=== PATIENT | female | born 1990 | race African-American/Black ===

== ENCOUNTER 2018-03-01 19:08 | Emergency (ER) | payer MEDICAID, SELFPAY ==
[2018-03-01 19:10] VITALS: BP 130/75; PULSE 96; RESP 16; TEMP 36.7; O2SAT 98; BMI 26.8
--- NOTE | 2018-03-01 20:18 | ED.DCSUM_ITS ---
- ER Visit Summary Date of Service: 03/01/18 Chief Complaint: Dental pain History of Present Illness: The patient is a [address] Carnes. She does not have a dentist. She reports that she has had pain in the site of her prior extraction of all of her third molars. This began 2 days ago. Is an aching pains 10 at 10 with eating and 8 out of 10 at rest. She taken ibuprofen without relief. Physical Examination: Vitals: Stable. Afebrile. Mouth: No trismus. No edema of the floor of the mouth. Mild tenderness palpation to the location where her third molars would be otherwise. There is no swelling. There is no evidence of abscess. There is no facial swelling. General: A&O x 3. NAD. Cardiovascular exam: Regular rate and rhythm, no murmur, rub or gallop. Respiratory exam: Clear to auscultation bilaterally. No wheezes or stridor. Abdominal exam: Soft, nontender, nondistended, normal bowel sounds. No peritoneal signs. Extremity: No clubbing, cyanosis, or edema. Emergency Department Course and Treatment: Discussed the patient that I do not think opiate-based medications are in her best interest. I also do not think that this is infectious in etiology. She is treated with naproxen and Tylenol. Treatment Plan: Patient is instructed to follow-up with a dentist as soon as possible. She is given a sheet with a local dentists in the area. Disposition: To home in improved and stable condition. Impression: 1. Dental pain. This note was generated with [employer] dictation software. It may contain incorrect words, spelling, and punctuation that were not noted in review of the chart prior to signing ED Disposition - Plan for ED Patient: Disposition: Home or Assisted Living Chief Complaint: Dental Instructions: ED Tooth Pain Prescriptions: Naproxen [Naprosyn] 500 mg PO BID #20 tablet Referrals: Dentist,Your [STAFF PHYSICIAN] - As soon as possible
[2018-03-01] MEDS: Acetaminophen 500 MG Tablet 1000 MG PO (20:55)
[2018-03-01] MEDS: Naproxen 250 MG Tablet 500 MG PO (20:55)
[2018-03-01 20:58] VITALS: PULSE 85; RESP 16; O2SAT 97
== END 2018-03-01 20:59 | disposition home or self-care (01) ==
LOC: ED 20:24
PROVIDERS: Emergency Provider Emergency Medicine; Family Provider Family Medicine; PCP Family Medicine
DX: K08.89 Other specified disorders of teeth and supporting structures (principal)
CPT/HCPCS: 99283

== ENCOUNTER 2019-10-25 22:10 | Emergency (ER) | payer MEDICAID, SELFPAY ==
[2019-10-25 22:11] VITALS: BP 116/73; PULSE 79; RESP 17; TEMP 36.3; O2SAT 100; BMI 29.9
--- NOTE | 2019-10-25 22:35 | ED.VIS.GEN ---
History of Present Illness Chief Complaint: Abd Pain Narrative: Patient is a 29-year-old female who presents with 1 week of lower abdominal/pelvic pain. She describes this as sharp in nature all the way across the lower abdomen although it is worse on the left. She reports urinary urgency but no dysuria or hematuria. No vaginal bleeding or discharge. She does have a Nexplanon implant. No fevers nausea vomiting diarrhea. No history of abdominal surgeries. Past Medical History - Allergies and Home Meds Allergies/Adverse Reactions: Allergies No Known Allergies Allergy (Verified 10/25/19 22:10) Primary Care Physician: Ray Carnes MD [Primary Care Provider] - Past Medical History: None Smoking Status: Never smoker Review of Systems All systems negative except as indicated General: Denies: Fever Cardiovascular: Denies: Chest pain Respiratory: Denies: Dyspnea Gastrointestinal: Reports: Abdominal pain. Denies: Nausea, Vomiting, Diarrhea Genitourinary: Reports: - - Urinary urgency. Denies: Dysuria Skin: Denies: Rash Neurological: Denies: Headache Physical Exam Vital Signs/Narrative: Vital Signs Temp Pulse Resp BP Pulse Ox 10/25/19 22:11 97.4 F L 79 17 116/73 100 Inital Vital Signs reviewed: Yes General: Well nourished, Well developed Head: Normocephalic Eyes: EOMI ENT: Moist mucous membranes Neck: Supple Cardiovascular: Regular rate, Regular rhythm Respiratory: No distress, CTA bilaterally Abdomen: Soft, - - Mild suprapubic tenderness. Negative for: Guarding, Rebound tenderness Extremities: Nontender Skin: Normal color Neurological: Alert Psychological: Normal affect Diagnostic/Tx/Re-eval Laboratory Results 10/25/19 10/25/19 23:35 23:35 Urine Color Yellow Urine Clarity Sl. Cloudy Urine pH 5.0 Ur Specific [place] 1.020 Urine Protein Negative Urine Glucose (UA) Normal Urine Ketones Negative Urine Occult Blood Negative Urine Nitrite Negative Urine Bilirubin Negative Urine Urobilinogen Normal Ur Leukocyte Esterase Negative Urine RBC 0 SEEN Urine WBC 0-5 SEEN Ur Squamous Epith Cells 25-50 SEEN Urine Bacteria 0 SEEN Urine Mucus 0 SEEN Urine Test Negative - Medical Decision Making Urinalysis contaminated but otherwise normal. No evidence of cystitis. is negative. Patient has a benign exam. She does not appear to have acute serious or surgical pathology. She does not appear to have an infectious pathology. We discussed other possibilities including ovarian cyst. She does not have an indication for emergent ultrasound but should symptoms continue I discussed she may need further outpatient evaluation. She was advised on supportive care and to follow-up as an outpatient. She was discharged. ED Disposition - Plan for ED Patient: Disposition: Home or Assisted Living Diagnosis: Abdominal pain Instructions: ABDOMINAL PAIN, Unknown Cause, (Female) Referrals: Ray Carnes MD [Primary Care Provider] -
--- NOTE | 2019-10-25 22:55 | ED.RN ---
PT UNABLE TO PROVIDE SAMPLE AT THIS TIME. INSTRUCTIONS GIVEN.
[2019-10-25 23:40] LABS: Bacteria 0 SEEN /hpf (None Seen); Mucous, Urine 0 SEEN /hpf (<or=2+); Red Blood Cells-Urine 0 SEEN /hpf (0-5)
[2019-10-25 23:47] LABS: Internal QC Validated? YES +Cl - CLEAR BKGD; Pregnancy, Urine Negative Negative
[2019-10-25 23:48] LABS: Color, Urine Yellow (Yellow); Glucose, Dipstick Normal (Normal); Ketone-Dipstick Negative (Negative); Leukocyte Esterase-Dipstick Negative /ul (Negative); Nitrite-Dipstick Negative (Negative); Occult Blood-Urine Negative /ul (Negative); Protein-Dipstick Negative (Negative); Urine Bilirubin Dipstick Negative (Negative); Urine Clarity Sl. Cloudy (Clear); Urine Urobilinogen Normal (Normal)
[2019-10-25 23:55] LABS: Squamous Epithelial Cells - UA 25-50 SEEN /hpf (5-10); White Blood Cells 0-5 SEEN /hpf (0-5)
== END 2019-10-26 00:13 | disposition home or self-care (01) ==
PROVIDERS: Emergency Provider Emergency Medicine; Family Provider Family Medicine; PCP Family Medicine
DX: R10.31 Right lower quadrant pain (principal); R10.32 Left lower quadrant pain
CPT/HCPCS: 81001; 81025; 99282

== ENCOUNTER → 2020-08-15 17:16 | Outpatient (CLI) | payer MEDICAID, SELFPAY | PROVIDERS: PCP Family Medicine; Referring Provider Nurse Practitioner Acute Care; Visit Provider Nurse Practitioner Acute Care | DX: Z20.828 Contact with and (suspected) exposure to other viral communicable diseases (principal) | CPT/HCPCS: 87635; C9803; U0003 ==

== ENCOUNTER 2020-10-12 18:43 | Emergency (ER) | payer MEDICAID, SELFPAY ==
[2020-10-12 18:44] VITALS: BP 130/80; PULSE 89; RESP 16; TEMP 36.6; O2SAT 100; BMI 27.3
--- NOTE | 2020-10-12 18:58 | ED.VIS.GEN ---
History of Present Illness Chief Complaint: General Illness Informant: Patient Onset: Yesterday Current Severity: Mild Maximum Severity: Mild Narrative: Patient presents with generalized fatigue and states that she has been to sleep all day. She denies cough or congestion. She denies nausea, vomiting, or diarrhea. No urinary symptoms. She states she did check her temperature 4 times in a relatively short time period. Temperatures measured ranged from 96-1 01. She does not believe her thermometer is accurate does not know if she truly had a fever. Patient states her mother is concerned that she may have Covid and thought she should be tested. Past Medical History - Allergies and Home Meds Allergies/Adverse Reactions: Allergies No Known Allergies Allergy (Verified 10/12/20 18:43) Primary Care Physician: Ray Carnes MD [Primary Care Provider] - Past Medical History: None Lives: With Family Smoking Status: Unknown if ever smoked Review of Systems General: Denies: Chills, Fever Eyes: Denies: Visual changes - bilaterally ENT: Denies: Bilateral ear pain Cardiovascular: Denies: Chest pain Respiratory: Denies: Dyspnea, Cough Gastrointestinal: Denies: Abdominal pain, Nausea, Vomiting Skin: Denies: Rash Neurological: Denies: Weakness Hematologic: Denies: Easy bruising, Easy bleeding Allergy: Denies: Uticaria Physical Exam Vital Signs/Narrative: Vital Signs Temp Pulse Resp BP Pulse Ox 10/12/20 18:44 98 F 89 16 130/80 H 100 Inital Vital Signs reviewed: Yes General: Well nourished, Well developed Head: Normocephalic ENT: Moist mucous membranes Neck: Supple Cardiovascular: Regular rate, Regular rhythm Respiratory: No distress, CTA bilaterally Abdomen: Soft, Nontender Skin: Normal color Neurological: Alert, Oriented x3, Normal Strength, Normal Sensation Psychological: Normal affect Diagnostic/Tx/Re-eval - Medical Decision Making Patient will have a rapid Covid test sent. With no other complaints currently other work-up will not be performed. Patient is in agreement with this plan. She was advised that if her test is negative but she continues to feel unwell throughout the weekend she should be retested on Wednesday as she may be too early in her course to truly test positive. She voices understanding and agreement. ED Disposition - Plan for ED Patient: Disposition: Home or Assisted Living Diagnosis: Fatigue Instructions: Coronavirus Disease 2019 (COVID-19): Overview, Coronavirus Disease 2019 (COVID-19): Caring for Yourself or Others Referrals: Ray Carnes MD [Primary Care Provider] - 3-5 Days if not improving
[2020-10-12 19:14] VITALS: PULSE 84; RESP 15; O2SAT 100
== END 2020-10-12 19:15 | disposition home or self-care (01) ==
LOC: ED 19:02
PROVIDERS: Emergency Provider Emergency Medicine; PCP Family Medicine
DX: R53.83 Other fatigue (principal)
CPT/HCPCS: 87426; 99282

== ENCOUNTER 2020-11-27 18:33 | Emergency (ER) | payer MEDICAID, SELFPAY ==
[2020-11-27 18:34] VITALS: BP 123/74; PULSE 86; PULSE 89; RESP 18; TEMP 35.9; O2SAT 100; BMI 26.9
[2020-11-27] MEDS: 0.9% Normal Saline 1,000 ML 1000 ML IV (19:00)
[2020-11-27] MEDS: Ondansetron 4 MG/2 ML Vial IV (19:01)
[2020-11-27 19:21] LABS: Absolute Lymphocyte Count 3.14 X10^3/uL (0.83-4.51); Absolute Neutrophil Count 5.5 X10^3/uL (2.0-7.7); Basophil# 0.02 X10^3/uL; Basophil% 0.2 % (0-1); Eosinophil# 0.21 X10^3/uL; Eosinophils% 2.3 % (0-5); Hematocrit 42.2 % (37-47); Hemoglobin 13.7 g/dL (12.0-15.0); Lymphocyte # 3.14 X10^3/ul (4.0); Lymphocyte % 33.8 % (19-41); Mean Corp Hgb Conc 32.5 g/dL (32-36); Mean Corpuscular Hgb 29.1 pg (27.0-32.0); Mean Corpuscular Volume 89.8 fL (81-99); Mean Platelet Vol. 10.6 fl (6.2-12.0); Monocyte# 0.38 X10^3/uL; Monocyte% 4.1 % (0-10); NRBC Flagged by Analyzer 0 % (0-5); Neutrophil # 5.53 X10^3/uL (2.7-7.7); Neutrophil % 59.4 % (47-70); Platelet Count 322 K/mm3 (150-450); RBC Distribution Width CV 12.4 % (11.6-14.6); RBC Distribution Width SD 40.6 fl (35.1-43.9); White Blood Count 9.3 K/mm3 (4.4-11.0)
[2020-11-27 19:34] LABS: International Normalized Ratio 0.9; Prothrombin Time (Protime)PT. 11.9 SECONDS (11.7-14.9)
[2020-11-27 19:41] LABS: Partial Thromboplast Time 21.8 Seconds (24.1-36.2)
[2020-11-27 19:48] LABS: ALB/GLOB Ratio 0.7 RATIO (0.9-2.4); AST(SGOT) 13 U/L (15-37); Alanine Aminotransfer ALT/SGPT 26 U/L (13-56); Albumin, Serum 3.3 g/dL (3.2-5.0); Alkaline Phosphatase 73 U/L (45-117); Anion Gap 6 (5-15); BUN 11 mg/dL (7-18); BUN/Creat Ratio 17.2 RATIO (10-20); Calcium,Total 8.8 mg/dL (8.5-10.1); Chloride 107 mmol/L (98-107); Creatinine, Serum 0.64 mg/dL (0.55-1.02); EST Glomerular Filtration Rate 114 mL/min (>60); Est Glom Filt Rate - Afr Amer 138 mL/min (>60); Estimated Creatinine Clearance 100.73 ml/min; Globulin 4.5 g/dL (2.2-4.2); Glucose 96 mg/dL (74-106); Potassium 3.1 mmol/L (3.5-5.1); Protein, Total 7.8 g/dL (6.4-8.2); Sodium Level 141 mmol/L (136-145)
[2020-11-27 19:51] LABS: Internal QC Validated? YES +Cl - CLEAR BKGD; Pregnancy, Serum, hCG Quali. NEGATIVE Negative
--- NOTE | 2020-11-27 20:02 | ED.DCSUM_ITS ---
- ER Visit Summary Date of Service: 11/27/20 Chief Complaint: Vomiting and diarrhea History of Present Illness: The patient is a [address] Mccormick. She reports that she began feeling ill approximately 2 and half hours ago. She has been nauseated and vomited 4 times. No blood in her emesis. She had 3 episodes of diarrhea. She reports that there was blood mixed with the stool on the last episode. States that she had an aching lower abdominal pain that preceded this. It was 6 out of 10 at worst. She is pain-free now. It was worsened by nothing. It was relieved by having diarrhea. Patient denies any dysuria or frequency. She is on her menstrual period now. Patient denies sick contacts. Has not been camping out of the country. No possible bad food exposure. Does not drink well water. No recent antibiotic use. Physical Examination: Vitals: Stable. Afebrile. General: Well-nourished and well-developed. Head: Normocephalic atraumatic. Neck: Supple, no lymphadenopathy. No JVD. Nontender. Cardiovascular: Regular rate and rhythm. No murmurs. Respiratory: No respiratory distress. Clear to auscultation bilaterally. Abdominal: Soft, nontender, nondistended, normal bowel sounds. No guarding, rebound, or peritoneal signs. Back: Nontender. Extremities: Nontender, no edema. Skin: Normal color, no rash. Neurologic: Alert and oriented ?3. Cranial nerves II through XII are intact. Normal strength and sensation. Psych: Normal affect. Test Results: CBC is normal. Hemoglobin is 13.7. Chem-7 shows potassium of 3.1. LFTs show globulin 4.5 and AST of 13. Coags are normal. test is negative. Emergency Department Course and Treatment: Patient had an IV placed. She was given a liter normal saline. She was given Zofran IV. She is had no further vomiting while here. She did have an episode of diarrhea and this was sent to the lab. Treatment Plan: At this time I do not have an explanation for the blood in the patient's last bowel movement. However, she has no family history of Crohn's or ulcerative colitis. I do not think imaging is indicated. She is stable. She will be discharged with instructions to push fluids. She given Zofran for n ausea. Follow-up with her primary care physician in 2 days for another exam. Return to the emergency department for any worsening symptoms. Disposition: To home in improved and stable condition. Impression: 1. Vomiting/diarrhea. This note was generated with [employer] dictation software. It may contain incorrect words, spelling, and punctuation that were not noted in review of the chart prior to signing ED Disposition - Plan for ED Patient: Instructions: ED Vomiting and Diarrhea ... Prescriptions: Ondansetron [Zofran Odt] 4 mg PO Q8H PRN PRN #10 tab PRN Reason: Nausea Prescription Printed Referrals: Ray Carnes MD [Primary Care Provider] - 2 Days
[2020-11-27 20:19] VITALS: BP 110/72; PULSE 70; RESP 16; O2SAT 100
== END 2020-11-27 20:20 | disposition home or self-care (01) ==
LOC: ED 19:04
PROVIDERS: Emergency Provider Emergency Medicine; PCP Family Medicine
DX: R11.2 Nausea with vomiting, unspecified (principal); R19.7 Diarrhea, unspecified
CPT/HCPCS: 80053; 84703; 85025; 85610; 85730; 87506; 96361; 96374; 99283; J7030; A4216; J2405

== ENCOUNTER 2021-01-30 11:20 | Outpatient (RCR) | payer MEDICAID, SELFPAY | END 2021-03-25 23:59 | LOC: IMMUN 11:20 | PROVIDERS: PCP Family Medicine; Visit Provider Family Medicine | DX: Z23 Encounter for immunization (principal) | CPT/HCPCS: 0001A; 0002A; 91300 ==

== ENCOUNTER 2021-11-14 14:41 | Emergency (ER) | payer MEDICAID, SELFPAY ==
[2021-11-14 14:41] VITALS: BP 117/84; PULSE 108; RESP 16; TEMP 36.4; O2SAT 100; BMI 25.4
--- NOTE | 2021-11-14 15:16 | ED.VIS.GI ---
HPI HPI - GI History of Present Illness Chief Complaint: Abd Pain Associated Symptoms LMP: 09/26/2021 Narrative Narrative: 31-year-old female who had twins with her first . She states she is unsure how far along she has been her last menstrual period was September 26, 2021. Patient has follow-up with somebody from [facility] but she does not note doctors name. She is supposed to be seen on the seventh of next month. She developed some sharp pain in the lower abdomen in the midline into the left of the midline earlier this morning. She does state she has had some nausea. She denies urinary or vaginal complaints. She has no constipation or diarrhea. Patient denies any trauma. She has not had confirmed intrauterine . PFSH PFSH Home Medications ondansetron 4 mg PO Q8H PRN PRN #10 tab 11/27/20 [Rx Last Taken Unknown] potassium chloride 40 meq PO DAILY 2 Days #30 ml 11/14/21 [Rx Last Taken Unknown] Allergy/AdvReac Type Severity Reaction Status Date / Time No Known Allergies Allergy Verified 11/14/21 14:43 Social History Smoking Status: Never smoker ROS ROS ED Constitutional Constitutional ED: Denies chills or fever(s) ENT ENT ED: Denies rhinorrhea or sore throat Cardiovascular Cardiovascular: Denies chest pain or palpitations Respiratory/Chest Respiratory/Chest: Denies cough, dyspnea or sputum Gastrointestinal Gastrointestinal: Reports abdominal pain and nausea; Denies constipation, diarrhea or vomiting Genitourinary Genitourinary ED: Reports LMP (females 10-50) Details: Comment: (09/26/2021); Denies dysuria, hematuria or urinary frequency Musculoskeletal Musculoskeletal: Denies arthralgias or myalgias Integumentary Denies Abrasions or rash Neurologic Neurologic: Denies headache(s), paresthesias or weakness EXAM Physical Exam Const Vital Signs: 11/14/21 14:41 11/14/21 17:59 Temperature 97.5 F L Temperature Source Temporal Pulse Rate 108 H Respiratory Rate 16 12 Blood Pressure 117/84 H Blood Pressure Mean 95 Pulse Ox 100 Oxygen Delivery Method Room Air Positive well nourished General Appearance ED: NAD; Negative for pallor HEENT Reports moist mucous membranes normocephalic and atraumatic Eyes PERRL and EOMs intact bilaterally General Eye ED: Negative for pale conjunctiva or scleral icterus Neck no lymphadenopathy and supple Resp normal respiratory effort and clear to auscultation bilaterally Cardio regular rate and regular rhythm GI non-distended GI Narrative: Suprapubic tenderness and left pelvic tenderness. Abdomen nonperitoneal. Palpation: soft and tender Back/Spine no CVA tenderness Neuro CN's II-XII intact bilaterally, moves all extremities and no sensory deficits noted Sensorium / Orientation: alert, oriented to person, oriented to place and oriented to time Motor Exam: strength 5/5 throughout Psych mental status grossly normal and thought process normal Skin General Skin Exam: Negative for jaundice or pallor MDM MDM MDM Narrative Medical decision making narrative: Patient presenting for evaluation of lower abdominal pain which began this morning. Other than nausea she has no other complaints. Her pain is currently mild. She does not want anything for pain or nausea currently. I did review the medical record and she is B+ blood type. Will obtain urine and blood work as well as transvaginal ultrasound. CBC and BMP are normal. With exception of a low potassium at 2.8. LFTs are normal. Urinalysis is negative for infection. hCG is 101,531. Transvaginal ultrasound shows single live intrauterine at 7 weeks 3 days. heart rate is 125. I will order her prescription for potassium replacement. Impression: 1. Abdominal pain for service of 2. Hypokalemia Lab Data Attestation: I reviewed the patient's lab results. Labs: Laboratory Results - last 24 hr 11/14/21 11/14/21 11/14/21 15:25 15:30 16:28 WBC 10.6 RBC 4.55 Hgb 13.4 Hct 39.4 MCV 86.6 MCH 29.5 MCHC 34.0 RDW Std Deviation 38.1 RDW Coeff of Jina 11.9 Plt Count 291 MPV 10.7 Immature Gran % (Auto) 0.300 Neut % (Auto) 66.0 Lymph % (Auto) 25.5 [place] % (Auto) 7.4 Eos % (Auto) 0.5 Baso % (Auto) 0.3 Absolute Neuts (auto) 7.0 Absolute Lymphs (auto) 2.70 Nucleated RBC % 0 Sodium Potassium Chloride Carbon Dioxide Anion Gap BUN Creatinine Estim Creat Clear Calc Est GFR (MDRD) Af Amer Est GFR (MDRD) Non-Af BUN/Creatinine Ratio Glucose Calcium Total Bilirubin AST ALT Alkaline Phosphatase Total Protein Albumin Globulin Albumin/Globulin Ratio HCG, Quant 214580 H Urine Color Yellow Urine Clarity Clear Urine pH 7.0 Ur Specific [place] 1.010 Urine Protein Negative Urine Glucose (UA) Normal Urine Ketones 5 H Urine Occult Blood 10 H Urine Nitrite Negative Urine Bilirubin Negative Urine Urobilinogen Normal Ur Leukocyte Esterase 25 H Urine RBC 0 SEEN Urine WBC 0-5 SEEN Ur Squamous Epith Cells 0-5 SEEN Urine Bacteria 0 SEEN Urine Mucus 0 SEEN Urine Trichomonas 0-5 SEEN 11/14/21 16:28 WBC RBC Hgb Hct MCV MCH MCHC RDW Std Deviation RDW Coeff of Jina Plt Count MPV Immature Gran % (Auto) Neut % (Auto) Lymph % (Auto) [place] % (Auto) Eos % (Auto) Baso % (Auto) Absolute Neuts (auto) Absolute Lymphs (auto) Nucleated RBC % Sodium 135 L Potassium 2.8 L Chloride 102 Carbon Dioxide 24.0 Anion Gap 9 BUN 8 Creatinine 0.65 Estim Creat Clear Calc 93.76 Est GFR (MDRD) Af Amer 135 Est GFR (MDRD) Non-Af 112 BUN/Creatinine Ratio 12.3 Glucose 80 Calcium 9.4 Total Bilirubin 0.50 AST 12 L ALT 19 Alkaline Phosphatase 66 Total Protein 8.7 H Albumin 4.1 Globulin 4.6 H Albumin/Globulin Ratio 0.9 HCG, Quant Urine Color Urine Clarity Urine pH Ur Specific [place] Urine Protein Urine Glucose (UA) Urine Ketones Urine Occult Blood Urine Nitrite Urine Bilirubin Urine Urobilinogen Ur Leukocyte Esterase Urine RBC Urine WBC Ur Squamous Epith Cells Urine Bacteria Urine Mucus Urine Trichomonas Radiography Diagnostic Testing: Clinical Impression(s) from Imaging Studies Obstetrics Ultrasound 11/14/21 16:17 IMPRESSION: There is a single live intrauterine with a heart rate of 125 bpm. The estimated gestation age (EGA) by US is 7 weeks, 3 days. The estimated date of delivery (KENZIE) by US is 06.30.22. Electronically Signed: Rosas Ortiz MD at 18:14 EST Reading Location ID and State: [facility] / [place] , Service support , Discharge Plan Triage Chief Complaint: Abd Pain ED Provider: Solitario Mccracken Dx/Rx/DC Orders Instructions: ED Abdominal Pain, Early , ED Hypokalemia Prescriptions: New potassium chloride 40 mEq/15 mL liquid 40 meq PO DAILY 2 Days Qty: 30 RF: 0 No Action ondansetron 4 MG tablet 4 mg PO Q8H PRN PRN (Reason: Nausea) Qty: 10 RF: 0 Primary Care Provider: Ray Carnes Referrals: Christiana Andrade DO [STAFF PHYSICIAN] - As Needed Ray Carnes MD [Primary Care Provider] - Disposition Disposition: Home, Self Care Discharge Date/Time: 11/14/21 18:36
[2021-11-14 15:38] LABS: Bacteria 0 SEEN /hpf (None Seen); Mucous, Urine 0 SEEN /hpf (<or=2+); Red Blood Cells-Urine 0 SEEN /hpf (0-5)
[2021-11-14 15:50] LABS: Color, Urine Yellow (Yellow); Glucose, Dipstick Normal (Normal); Ketone-Dipstick 5 mg/dl (Negative); Leukocyte Esterase-Dipstick 25 /ul (Negative); Nitrite-Dipstick Negative (Negative); Occult Blood-Urine 10 /ul (Negative); Protein-Dipstick Negative (Negative); Urine Bilirubin Dipstick Negative (Negative); Urine Clarity Clear (Clear); Urine Urobilinogen Normal (Normal)
[2021-11-14 15:55] LABS: Squamous Epithelial Cells - UA 0-5 SEEN /hpf (5-10); White Blood Cells 0-5 SEEN /hpf (0-5)
[2021-11-14 15:57] LABS: Trichomonas 0-5 SEEN /hpf (None Seen)
--- NOTE | 2021-11-14 16:17 | US_ITS ---
STUDY: FIRST TRIMESTER OBSTETRICAL ULTRASOUND REASON FOR EXAM: Female, 31 years old. Notes Other, MILD RLQ PAIN SINCE YESTERDAY, UNKNOWN STAGE OF . LMP 09/26/21-APPROXIMATELY, HCG TODAY-101,531. PT DENIES ANY CRAMPING OR VAGINAL BLEEDING TECHNIQUE: Transvaginal US was obtained to better visualized the ovaries. TECHNICAL QUALITY: Adequate. PRIOR ULTRASOUND: None. FINDINGS: There is visualization of a single gestational sac in a normal intrauterine position. The mean sac diameter (MSD) measures 27 mm, indicating an estimated gestational age (EGA) of 7 weeks, 5 days. The gestational sac shape is within normal limits. There is no demonstrated yolk sac. The placenta is non-visualized. Due to early gestation, the placenta is not seen. There is visualization of a live embryo. The crown-rump length (CRL) measures 12 mm, indicating an estimated gestational age (EGA) of 7 weeks, 2 days. There is demonstrated cardiac activity with a heart rate of 125 bpm. The estimated gestation age (EGA) by LMP is 7 weeks, 0 days. The estimated date of delivery (KENZIE) by LMP is 9.16.22. The estimated gestation age (EGA) by US is 7 weeks, 3 days. The estimated date of delivery (KENZIE) by US is 9.13.22. The uterus measures 11.2 cm. There is no demonstrated uterine fibroid. The cervix is closed. The right ovary measures 4.6 cm. Cyst measures 36 mm. No follow-up required. There is no visualized right adnexal mass or complex lesion. The left ovary measures 3.2 cm. There is no left ovarian cyst. There is no visualized left adnexal mass or complex lesion. There is no fluid in the cul de sac. US/Init OB < 14Wks US IMPRESSION: There is a single live intrauterine with a heart rate of 125 bpm. The estimated gestation age (EGA) by US is 7 weeks, 3 days. The estimated date of delivery (KENZIE) by US is 9. Electronically Signed: Rosas Ortiz MD at 18:14 EST ,
[2021-11-14 16:53] LABS: Basophil# 0.03 X10^3/uL; Basophil% 0.3 % (0-1); Eosinophil# 0.05 X10^3/uL; Eosinophils% 0.5 % (0-5); Hematocrit 39.4 % (37-47); Hemoglobin 13.4 g/dL (12.0-15.0); Lymphocyte % 25.5 % (19-41); Mean Corpuscular Hgb 29.5 pg (27.0-32.0); Mean Corpuscular Volume 86.6 fL (81-99); Mean Platelet Vol. 10.7 fl (6.2-12.0); Monocyte# 0.78 X10^3/uL; Monocyte% 7.4 % (0-10); NRBC Flagged by Analyzer 0 % (0-5); Neutrophil # 7.01 X10^3/uL (2.7-7.7); Platelet Count 291 K/mm3 (150-450); RBC Distribution Width CV 11.9 % (11.6-14.6); RBC Distribution Width SD 38.1 fl (35.1-43.9); Red Blood Count 4.55 M/mm3 (4.2-5.4); White Blood Count 10.6 K/mm3 (4.4-11.0)
[2021-11-14 16:56] LABS: ALB/GLOB Ratio 0.9 RATIO (0.9-2.4); AST(SGOT) 12 U/L (15-37); Alanine Aminotransfer ALT/SGPT 19 U/L (13-56); Albumin, Serum 4.1 g/dL (3.2-5.0); Alkaline Phosphatase 66 U/L (45-117); Anion Gap 9 (5-15); BUN 8 mg/dL (7-18); BUN/Creat Ratio 12.3 RATIO (10-20); Calcium,Total 9.4 mg/dL (8.5-10.1); Chloride 102 mmol/L (98-107); Creatinine, Serum 0.65 mg/dL (0.55-1.02); EST Glomerular Filtration Rate 112 mL/min (>60); Est Glom Filt Rate - Afr Amer 135 mL/min (>60); Estimated Creatinine Clearance 93.76 ml/min; Globulin 4.6 g/dL (2.2-4.2); Glucose 80 mg/dL (74-106); Potassium 2.8 mmol/L (3.5-5.1); Protein, Total 8.7 g/dL (6.4-8.2); Sodium Level 135 mmol/L (136-145)
[2021-11-14 17:59] VITALS: RESP 12
== END 2021-11-14 18:36 | disposition home or self-care (01) ==
PROVIDERS: Emergency Provider Student in an Organized Health Care Education/Training Program; PCP Family Medicine; Visit Provider Student in an Organized Health Care Education/Training Program
DX: O26.891 Other specified pregnancy related conditions, first trimester (principal); R11.0 Nausea; R10.30 Lower abdominal pain, unspecified; Z3A.01 Less than 8 weeks gestation of pregnancy; Z79.899 Other long term (current) drug therapy
CPT/HCPCS: 76801; 80053; 81001; 84702; 85025; 99282; J7030; A4216

== ENCOUNTER 2022-05-05 12:45 | Emergency (ER) | payer MEDICAID, SELFPAY ==
[2022-05-05 12:46] VITALS: BP 141/77; PULSE 110; RESP 18; TEMP 36.2; O2SAT 99; BMI 24.3
--- NOTE | 2022-05-05 13:04 | EX.ED.DYSGE1 ---
HPI History of Present Illness Chief Complaint: Dizziness Detail of Chief Complaint: Orthostatic symptoms and unresponsiveness Informant: patient Onset/Context/Timing Onset: Today (Documented narrative portion of HPI) Context: Sudden Onset Timing: Intermittent Quality: Patient states everything went black and daughter states she was unresponsi Location: Home Current Severity: Patient now reports orthostatic symptoms Maximum Severity: Narrative of the HPI Worsened by: Uncertain Relieved by: Nothing Associated Symptoms Associated Symptoms: Narrative Narrative Narrative: Patient is a female who is approximately 7 months gestation who presents after single episode. She states she gave her 4-year-old daughter a bath. She was drying her off. Her daughter attempted to get up and hit her head against the chest. Patient states everything went black. Her 12-year-old daughter states she did not respond to verbal stimuli for a minute or 2. Patient now complains of orthostatic symptoms. She denies headache, ocular, visual or auditory symptoms. She denies trouble with speech or swallowing. She presently denies chest pain or shortness of breath. She has no history of VTE. She denies leg pain, swelling or discoloration. She denies black or maroon-colored stool. She denies vomiting. She has no known history of heart disease or valvular heart disease. Med list indicates she may have history of hypokalemia. Patient states she had no complications with her first 3 pregnancies. There is no family history of seizures. She has no history of seizures or febrile seizures as a child. She denied incontinence of urine or stool. She denied biting her tongue. Prior similar symptoms: No Recent Illness/Hospitalization: No PFSH PFSH Allergy/AdvReac Type Severity Reaction Status Date / Time No Known Allergies Allergy Verified 05/05/22 12:48 Social History (Updated 05/05/22 @ 13:[address] Casey Boo MD) household members: children Smoking Status: Never smoker substance use type: does not use ROS ROS ED Constitutional Constitutional ED: Denies chills, fever(s), subjective, sweats or weight loss Eyes Eyes: Denies blurry vision, change in vision or diplopia ENT ENT ED: Denies ear pain, rhinorrhea or sore throat Cardiovascular Cardiovascular: Denies chest pain, orthopnea, palpitations, paroxysmal nocturnal dyspnea or racing heartbeat Respiratory/Chest Respiratory/Chest: Denies cough, dyspnea, dyspnea on exertion, orthopnea or paroxysmal nocturnal dyspnea Gastrointestinal Gastrointestinal: Denies abdominal pain, diarrhea, nausea or vomiting Genitourinary Genitourinary ED: Reports LMP (females 10-50) Details: Comment: (Last normal menstrual period greater than 7 months ago) and urinary frequency; Denies dysuria or hematuria Musculoskeletal Musculoskeletal: Denies arthralgias, back pain or myalgias Integumentary Denies Abrasions or rash Neurologic Neurologic: Denies headache(s), paresthesias or weakness Endocrine Endocrinology: Denies cold intolerance or heat intolerance Hematologic/Lymphatic Hematologic/Lymphatic: Denies easy bruising or lymphadenopathy EXAM Physical Exam Const Vital Signs: 05/05/22 12:46 05/05/22 14:01 Temperature 97.2 F L Temperature Source Temporal Pulse Rate 110 H Pulse Rate [Lying] 111 H Pulse Rate [Sitting (for 1 minute prior to obtaining)] 108 H Pulse Rate [Standing (for 1 minute prior to obtaining)] 113 H Respiratory Rate 18 Blood Pressure 141/77 H Blood Pressure [Lying] 120/85 H Blood Pressure [Sitting (for 1 minute prior to obtaining)] 123/65 H Blood Pressure [Standing (for 1 minute prior to obtaining)] 118/75 Blood Pressure Mean 98 Blood Pressure Mean [Lying] 96 Blood Pressure Mean [Sitting (for 1 minute prior to obtaining)] 84 Blood Pressure Mean [Standing (for 1 minute prior to obtaining)] 89 Pulse Ox 99 Oxygen Delivery Method Room Air Positive well nourished and well developed Constitutional Narrative: Patient is thin. It is apparent that she is . General Appearance ED: well developed and NAD; Negative for cyanotic, diaphoretic or pallor HEENT Reports moist mucous membranes Negative for trauma or tenderness Eyes PERRL and EOMs intact bilaterally General Eye ED: Negative for pale conjunctiva or scleral icterus Neck no lymphadenopathy, supple and no JVD Chest Wall palpation of chest normal Resp normal respiratory effort and clear to auscultation bilaterally Cardio S1 normal heart sound and S2 normal heart sound; Negative for regular rate, regular rhythm or no murmurs Rate: tachycardic GI normal to inspection, nondistended, normoactive bowel sounds, non-tender and non-distended; Negative for hepatosplenomegaly GI Narrative: Gravid uterus approximately 4 to 5 fingerbreadths below the xiphoid process Palpation: soft Back/Spine no CVA tenderness Extremity normal to inspection Extremity Narrative: There is no asymmetry, swelling, discoloration, leg vein distention, palpable cords or tenderness along the distribution of the deep venous system. General Extremety ED: Negative for edema, tenderness or other findings General Extremity: Negative for edema or other findings Neuro oriented x3, CN's II-XII intact bilaterally and no sensory deficits noted Sensorium / Orientation: alert Motor Exam: strength 5/5 throughout Psych mental status grossly normal Skin no rashes or lesions noted and no wounds General Skin Exam: elasticity normal; Negative for jaundice or pallor MDM MDM MDM Narrative Medical decision making narrative: Patient with sickle episode with minimal trauma. Differential would include seizure, dysrhythmia especially since monitor reveals trigeminy. Electrolyte abnormality and specifically hypokalemia. Will obtain orthostatic vital signs and she is now complaining of orthostatic symptoms with standing. With new onset murmur and trigeminy echo needs to be considered since she has a murmur that she has never been told she has and she is in trigeminy. Donaldo Means's bituminous distributor operator Dr. Regla Jones was paged. Spoke with Dr. Gerda Jessica who is satellite project site monitor. Patient to follow-up in 1 to 2 weeks. Patient was referred to cardiology. Suspect this to be positional with her being anemic and in her third trimester . She was on her right side when this occurred. Lab Data Attestation: I reviewed the patient's lab results. Lab results narrative: White count is elevated 11.5 thousand without shift. H&H is 8.7 and 26.7 with normal indices. Comprehensive metabolic panel is unremarkable. BUN to creatinine ratio is less than 20-1. TSH is normal. BNP is normal. Troponin is normal. Awaiting results of echocardiogram. New Patient was anemic in 2017 when she was . Blood work that was obtained approximately 5 months ago revealed a hemoglobin of 13 5. With brown stool normal BUN to creatinine ratio suspect the anemia is due to to . Labs: Laboratory Results - last 24 hr 05/05/22 05/05/22 05/05/22 13:16 13:16 13:16 WBC RBC Hgb Hct MCV MCH MCHC RDW Std Deviation RDW Coeff of Jina Plt Count MPV Immature Gran % (Auto) Neut % (Auto) Lymph % (Auto) [place] % (Auto) Eos % (Auto) Baso % (Auto) Absolute Neuts (auto) Absolute Lymphs (auto) Nucleated RBC % Sodium 140 Potassium 3.4 L Chloride 107 Carbon Dioxide 24.0 Anion Gap 9 BUN 9 Creatinine 0.45 L Estim Creat Clear Calc 134.18 Est GFR (MDRD) Af Amer 205 Est GFR (MDRD) Non-Af 169 BUN/Creatinine Ratio 19.9 Glucose 94 Calcium 8.5 Total Bilirubin 0.20 AST 11 L ALT 13 Alkaline Phosphatase 92 Troponin I High Sens 22 B-Natriuretic Peptide 11.9 Total Protein 6.6 Albumin 2.4 L Globulin 4.2 Albumin/Globulin Ratio 0.6 L TSH 2.23 05/05/22 14:26 WBC 11.5 H RBC 2.94 L Hgb 8.7 L Hct 26.7 L MCV 90.8 MCH 29.6 MCHC 32.6 RDW Std Deviation 41.8 RDW Coeff of Jina 12.9 Plt Count 256 MPV 10.7 Immature Gran % (Auto) 0.700 Neut % (Auto) 69.8 Lymph % (Auto) 20.1 [place] % (Auto) 7.7 Eos % (Auto) 1.6 Baso % (Auto) 0.1 Absolute Neuts (auto) 8.0 H Absolute Lymphs (auto) 2.31 Nucleated RBC % 0 Sodium Potassium Chloride Carbon Dioxide Anion Gap BUN Creatinine Estim Creat Clear Calc Est GFR (MDRD) Af Amer Est GFR (MDRD) Non-Af BUN/Creatinine Ratio Glucose Calcium Total Bilirubin AST ALT Alkaline Phosphatase Troponin I High Sens B-Natriuretic Peptide Total Protein Albumin Globulin Albumin/Globulin Ratio TSH Radiography Diagnostic Testing: Clinical Impression(s) from Imaging Studies Echocardiogram 05/05/22 13:15 Interpretation Summary Left ventricular systolic function is normal. The estimated ejection fraction is 60 %. Trivial mitral valve insufficiency. Trivial tricuspid valve insufficiency. Unable to estimate RV systolic pressure due to insufficient tricuspid regurgitant envelope. No evidence for diastolic dysfunction. Ordering Physician: Casey oBo Referring Physician: MD Ray Carnes Performed By: Danni Roblero [facility] Initial EKG: Attestation: I personally reviewed and interpreted this EKG as follows: Interpretation: Sinus Rhythm (Sinus rhythm rate of 98 with frequent PVCs. There is evidence of trigeminy. [place] intervals 122 ms. QRS duration 86 ms. QT duration 3 and 52 ms. [place] is normal.) Discharge Plan Triage Chief Complaint: Dizziness ED Provider: Casey Boo Dx/Rx/DC Orders Clinical Impression: Syncope and collapse, Anemia during in third trimester, Ventricular trigeminy, Orthostatic dizziness, Mitral regurgitation Instructions: Anemia During , ED About Arrhythmias, ED Fainting, Uncertain Cause Primary Care Provider: Ray Carnes Referrals: Ray Carnes MD [Primary Care Provider] - Garcia Sanchez MD [STAFF PHYSICIAN] - 5-7 Days Regla Jones MD [STAFF PHYSICIAN] - 1-2 Weeks Disposition Disposition: Home, Self Care
--- NOTE | 2022-05-05 13:15 | ECHOD_ITS ---
Reason For Study: Syncope Procedure This was a 2D Doppler, Color Flow transthoracic echocardiogram. The exam was of adequate technical quality. Exam performed portable in ED. Left Ventricle Normal LV size. Left ventricular systolic function is normal. The estimated ejection fraction is 60 %. No evidence for diastolic dysfunction. No regional wall motion abnormalities noted. Right Ventricle Normal RV size. Normal systolic function. Atria Normal left atrium. Normal right atrium. No doppler evidence for ASD. Mitral Valve There is no mitral annular calcification. Normal mitral valve. Trivial mitral valve insufficiency. Tricuspid Valve Normal tricuspid valve. Trivial tricuspid valve insufficiency. Unable to estimate RV systolic pressure due to insufficient tricuspid regurgitant envelope. Aortic Valve Trisinus/trileaflet aortic valve. Normal aortic valve. Pulmonic Valve The pulmonic valve is not well visualized. Great Vessels Normal sized aortic root. Pericardium/Pleural No pericardial effusion. MMode/2D Measurements & Calculations LVIDd: 3.8 cm IVSd: 0.88 cm Ao root diam: 2.2 cm LVIDs: 2.2 cm LVPWd: 1.1 cm RVDd: 3.3 cm FS: 43.4 % LAV(MOD-bp): 33.0 ml LVAd ap4: 24.8 cm2 LVAd ap2: 25.5 cm2 LAV(MOD-bp) Indexed: 21.1 ml/m2 LVLd ap4: 7.5 cm LVLd ap2: 8.2 cm LAV(MOD-sp2): 28.8 ml EDV(MOD-sp4): 70.0 ml EDV(MOD-sp2): 68.7 ml LAV(MOD-sp4): 31.2 ml EDV(sp4-el): 69.9 ml EDV(sp2-el): 67.7 ml LVAs ap4: 15.0 cm2 LVAs ap2: 14.6 cm2 LVLs ap4: 6.5 cm LVLs ap2: 7.3 cm ESV(MOD-sp4): 29.1 ml ESV(MOD-sp2): 25.1 ml ESV(sp4-el): 29.3 ml ESV(sp2-el): 24.8 ml EF(MOD-sp4): 58.4 % EF(MOD-sp2): 63.5 % EF(sp4-el): 58.1 % SV(MOD-sp4): 40.8 ml SV(MOD-sp2): 43.6 ml SV(sp4-el): 40.7 ml LA dimension(2D): 2.7 cm LA A4 area: 15.1 cm2 RA A4 area: 9.1 cm2 Doppler Measurements & Calculations MV E max alexx: 92.6 cm/sec Lat Peak E' Alexx: 17.4 cm/sec Med Peak E' Laexx: 13.3 cm/sec MV A max alexx: 68.5 cm/sec E/E' lat: 5.3 E/E' med: 6.9 MV E/A: 1.4 Ao V2 max: 147.3 cm/sec LV V1 max: 120.1 cm/sec PA V2 max: 88.9 cm/sec Ao max P.7 mmHg LV V1 max P.9 mmHg ECHO/Echo Complete Interpretation Summary Left ventricular systolic function is normal. The estimated ejection fraction is 60 %. Trivial mitral valve insufficiency. Trivial tricuspid valve insufficiency. Unable to estimate RV systolic pressure due to insufficient tricuspid regurgita nt envelope. No evidence for diastolic dysfunction. Ordering Physician: Casey Boo Referring Physician: MD Trice Ray Performed By: Danni Roblero RDCS
[2022-05-05 13:36] LABS: BNP,B-Type NATRIURETIC PEPTIDE 11.9 pg/mL (0-100)
[2022-05-05 13:45] LABS: Thyroid Stim Hormone (TSH) 2.23 uIU/mL (0.358-3.74)
--- NOTE | 2022-05-05 13:51 | EKG12_ITS ---
Test Reason : CP Blood Pressure : / mmHG Vent. Rate : 124 BPM Atrial Rate : 124 BPM P-R Int : 128 ms QRS Dur : 084 ms QT Int : 322 ms P-R-T Axes : 057 046 035 degrees QTc Int : 462 ms Sinus tachycardia occasional PVCs Confirmed by KELLY FAULKNER, CARLOS A ([id number]), communications editor MANOLO NOLASCO ([id number]) on 05/08/2022 7:52:04 AM Referred By: LOLITA Confirmed By:CARLOS A MENDOZA MD
[2022-05-05 14:01] VITALS: BP 118/75; BP 120/85; BP 123/65; PULSE 108; PULSE 111; PULSE 113
[2022-05-05 14:36] LABS: Absolute Lymphocyte Count 2.31 X10^3/uL (0.83-4.51); Basophil# 0.01 X10^3/uL; Basophil% 0.1 % (0-1); Eosinophil# 0.18 X10^3/uL; Eosinophils% 1.6 % (0-5); Hematocrit 26.7 % (37-47); Hemoglobin 8.7 g/dL (12.0-15.0); Lymphocyte # 2.31 X10^3/ul (0.83-4.51); Lymphocyte % 20.1 % (19-41); Mean Corp Hgb Conc 32.6 g/dL (32-36); Mean Corpuscular Hgb 29.6 pg (27.0-32.0); Mean Corpuscular Volume 90.8 fL (81-99); Mean Platelet Vol. 10.7 fl (6.2-12.0); Monocyte# 0.89 X10^3/uL; Monocyte% 7.7 % (0-10); NRBC Flagged by Analyzer 0 % (0-5); Neutrophil # 8.03 X10^3/uL (2.7-7.7); Neutrophil % 69.8 % (47-70); Platelet Count 256 K/mm3 (150-450); RBC Distribution Width CV 12.9 % (11.6-14.6); RBC Distribution Width SD 41.8 fl (35.1-43.9); Red Blood Count 2.94 M/mm3 (4.2-5.4); White Blood Count 11.5 K/mm3 (4.4-11.0)
[2022-05-05 14:36] LABS: ALB/GLOB Ratio 0.6 RATIO (0.9-2.4); AST(SGOT) 11 U/L (15-37); Alanine Aminotransfer ALT/SGPT 13 U/L (13-56); Albumin, Serum 2.4 g/dL (3.2-5.0); Alkaline Phosphatase 92 U/L (45-117); Anion Gap 9 (5-15); BUN 9 mg/dL (7-18); BUN/Creat Ratio 19.9 RATIO (10-20); Calcium,Total 8.5 mg/dL (8.5-10.1); Chloride 107 mmol/L (98-107); Creatinine, Serum 0.45 mg/dL (0.55-1.02); EST Glomerular Filtration Rate 169 mL/min (>60); Est Glom Filt Rate - Afr Amer 205 mL/min (>60); Estimated Creatinine Clearance 134.18 ml/min; Globulin 4.2 g/dL (2.2-4.2); Glucose 94 mg/dL (74-106); Potassium 3.4 mmol/L (3.5-5.1); Protein, Total 6.6 g/dL (6.4-8.2); Sodium Level 140 mmol/L (136-145); Troponin-I HS 22 pg/mL (3.0-54.0)
[2022-05-05 15:00] VITALS: BP 118/74; PULSE 96; RESP 20; O2SAT 100
== END 2022-05-05 15:10 | disposition home or self-care (01) ==
PROVIDERS: Emergency Provider Emergency Medicine; PCP Family Medicine; Visit Provider Emergency Medicine
DX: O99.413 Diseases of the circulatory system complicating pregnancy, third trimester (principal); O99.891 Other specified diseases and conditions complicating pregnancy; O99.013 Anemia complicating pregnancy, third trimester; I34.0 Nonrheumatic mitral (valve) insufficiency; R55 Syncope and collapse; R00.8 Other abnormalities of heart beat; O99.283 Endocrine, nutritional and metabolic diseases complicating pregnancy, third trimester; E87.6 Hypokalemia
CPT/HCPCS: 80053; 83880; 84443; 84484; 85025; 93005; 93306; 99284; A4216

== ENCOUNTER 2022-05-06 21:17 | Emergency (ER) | payer MEDICAID, SELFPAY ==
[2022-05-06 21:17] VITALS: BP 119/75; PULSE 123; RESP 16; TEMP 37.5; O2SAT 96; BMI 24.5
--- NOTE | 2022-05-06 21:47 | EKG12_ITS ---
Test Reason : DYSRHYTHMIA Blood Pressure : / mmHG Vent. Rate : 122 BPM Atrial Rate : 122 BPM P-R Int : 118 ms QRS Dur : 080 ms QT Int : 316 ms P-R-T Axes : 061 052 019 degrees QTc Int : 450 ms Sinus tachycardia occasional PVC's Confirmed by KELLY FAULKNER, CARLOS A ([id number]), rewrite editor MANOLO NOLASCO ([id number]) on 05/08/2022 7:51:08 AM Referred By: LOLITA Confirmed By:CARLOS A MENDOZA MD
--- NOTE | 2022-05-06 21:49 | CT_ITS ---
STUDY: CTA CHEST REASON FOR EXAM: Female, 32 years old. pain, sob, syncope RADIATION DOSAGE (If Supplied By Facility): CTDIvol = ( 10.67 ) mGy, DLP = ( 215.70 ) mGycm TECHNIQUE: The examination was performed with the intravenous administration of IV 100mL Isovue-370. Post-processing of the angiographic images was performed, with multiplanar reformation and 3D reconstruction. Individualized dose optimization techniques were used for this CT. COMPARISON: None. FINDINGS: LUNGS: No pneumonia or edema. Left upper lobe 4 mm pulmonary nodule (2-80). AORTA/GREAT VESSELS: No aneurysm.. PULMONARY VESSELS: Evaluation limited due to motion. No pulmonary embolus in the segmental level. PLEURA: Normal. MEDIASTINUM: Normal. UPPER ABDOMEN: Normal. BONES/SOFT TISSUES: Normal. OTHER: None. CT/CTA Chest W/WO Contrast IMPRESSION: 1. No pulmonary embolism to the segmental level. 2. No acute cardiopulmonary disease. 3. Left upper lobe 4 mm pulmonary nodule. *Fleischner Society Recommendations (Radiology 2005;[id number].) (Follow-up and management of nodules smaller than 8 mm detected incidentally at non-screening CT. Newly detected indeterminate nodule in persons 35 years of age or older.) Low risk patient: Minimal or absent history of smoking and of other known risk factors. <= 4mm: No followup needed >4-6mm: Follow-up CT at 12 months, if unchanged - no further followup >6-8mm: Initial Follow-up CT at 6-12 months, then at 18-24 months if no change >8mm: Follow-up CT at 3, 9, and 24 months; FDG PET scan; and or biopsy High risk patient: History of smoking or of other known risk factors. <= 4mm: Follow-up CT at 12 months, if unchanged - no further followup >4-6mm: Initial Follow-up CT at 6-12 months, then at 18-24 months if no change >6-8mm: Initial Follow-up CT at 3-6 months, then at 9-12 and 24 months if no change >8mm: Follow-up CT at 3, 9, and 24 months; FDG PET scan; and or biopsy Note: Non-solid (ground-glass) or partly solid nodules may require longer follow-up to Electronically Signed: Zachery Aviles MD at 22:52 EDT ,
[2022-05-06 21:53] VITALS: BP 107/59; PULSE 121; RESP 18; O2SAT 99
[2022-05-06 22:13] LABS: Absolute Lymphocyte Count 0.69 X10^3/uL (0.83-4.51); Absolute Neutrophil Count 9.1 X10^3/uL (2.0-7.7); Basophil# 0.02 X10^3/uL; Basophil% 0.2 % (0-1); Eosinophil# 0.21 X10^3/uL; Eosinophils% 1.9 % (0-5); Hematocrit 27.3 % (37-47); Hemoglobin 8.9 g/dL (12.0-15.0); Lymphocyte # 0.69 X10^3/ul (0.83-4.51); Lymphocyte % 6.2 % (19-41); Mean Corp Hgb Conc 32.6 g/dL (32-36); Mean Corpuscular Hgb 29.4 pg (27.0-32.0); Mean Corpuscular Volume 90.1 fL (81-99); Mean Platelet Vol. 10.7 fl (6.2-12.0); Monocyte# 1.06 X10^3/uL; Monocyte% 9.5 % (0-10); NRBC Flagged by Analyzer 0 % (0-5); Neutrophil # 9.09 X10^3/uL (2.7-7.7); Neutrophil % 81.6 % (47-70); Platelet Count 245 K/mm3 (150-450); RBC Distribution Width CV 12.8 % (11.6-14.6); RBC Distribution Width SD 41.4 fl (35.1-43.9); Red Blood Count 3.03 M/mm3 (4.2-5.4); White Blood Count 11.1 K/mm3 (4.4-11.0)
[2022-05-06 22:28] LABS: Anion Gap 8 (5-15); BUN 8 mg/dL (7-18); BUN/Creat Ratio 13.8 RATIO (10-20); Calcium,Total 8.6 mg/dL (8.5-10.1); Chloride 106 mmol/L (98-107); Creatinine, Serum 0.58 mg/dL (0.55-1.02); EST Glomerular Filtration Rate 127 mL/min (>60); Est Glom Filt Rate - Afr Amer 154 mL/min (>60); Glucose 93 mg/dL (74-106); Potassium 3.7 mmol/L (3.5-5.1); Sodium Level 138 mmol/L (136-145); Troponin-I HS 21 pg/mL (3.0-54.0)
[2022-05-06] MEDS: Acetaminophen 500 MG Tablet 1000 MG PO (22:35)
[2022-05-06] MEDS: 0.9% Normal Saline 1,000 ML 150 ML IV (22:36)
[2022-05-06 23:05] LABS: ROM Internal Control Test YES-OK TO RESULT pt. (Internal QC); ROM Patient Test Negative (Negative)
[2022-05-06 23:11] LABS: Mucous, Urine 0 SEEN /hpf (<or=2+); Red Blood Cells-Urine 0 SEEN /hpf (0-5); Squamous Epithelial Cells - UA 0 SEEN /hpf (5-10)
--- NOTE | 2022-05-06 23:17 | EKG12_ITS ---
Test Reason : Dizziness Blood Pressure : / mmHG Vent. Rate : 098 BPM Atrial Rate : 098 BPM P-R Int : 122 ms QRS Dur : 086 ms QT Int : 352 ms P-R-T Axes : 059 042 021 degrees QTc Int : 449 ms Sinus rhythm with frequent Premature ventricular complexes Otherwise normal ECG Confirmed by KELLY FAULKNER, CARLOS A ([id number]), editor at large MANOLO NOLASCO ([id number]) on 05/08/2022 8:01:01 AM Referred By: Rajeev Confirmed By:CARLOS A MENDOZA MD
[2022-05-06 23:22] LABS: Color, Urine Yellow (Yellow); Glucose, Dipstick Normal (Normal); Ketone-Dipstick Negative (Negative); Leukocyte Esterase-Dipstick 100 /ul (Negative); Nitrite-Dipstick Negative (Negative); Occult Blood-Urine Negative /ul (Negative); Protein-Dipstick Negative (Negative); Specific Gravity, Urine 1.005 (1.002-1.030); Urine Bilirubin Dipstick Negative (Negative); Urine Clarity Clear (Clear); Urine Urobilinogen 1 mg/dl (Normal)
[2022-05-06 23:28] VITALS: BP 106/64; PULSE 124; RESP 21; O2SAT 99
[2022-05-06] MEDS: Ondansetron 4 MG/2 ML Vial IV (23:29)
[2022-05-06] MEDS: Morphine 4 MG/ML Syringe IV (23:29)
[2022-05-06 23:31] LABS: Bacteria 1+ /hpf (None Seen); White Blood Cells 0-5 SEEN /hpf (0-5)
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
[2022-05-07 00:40] LABS: Troponin-I HS 19 pg/mL (3.0-54.0)
--- NOTE | 2022-05-07 00:56 | EDS_ITS ---
HPI History of Present Illness Chief Complaint: General Illness [facility] Medical History Anxiety Asthma Bipolar disorder CPAP (continuous positive airway pressure) dependence Depression Former smoker Migraines Schizophrenia Sleep apnea Allergy/AdvReac Type Severity Reaction Status Date / Time No Known Allergies Allergy Verified 05/06/22 21:28 Surgical History H/O: Social History household members: children Smoking Status: Former smoker substance use type: does not use EXAM Physical Exam Const Vital Signs: 05/06/22 21:17 05/06/22 21:47 05/06/22 21:53 Temperature 99.5 F H Temperature Source Temporal Pulse Rate 123 H 121 H Respiratory Rate 16 18 Respiratory Pattern Normal Blood Pressure 119/75 107/59 L Blood Pressure Mean 89 75 Pulse Ox 96 99 Oxygen Delivery Method Room Air Room Air 05/06/22 23:28 Temperature Temperature Source Pulse Rate 124 H Respiratory Rate 21 H Respiratory Pattern Blood Pressure 106/64 Blood Pressure Mean 78 Pulse Ox 99 Oxygen Delivery Method Room Air MDM MDM MDM Narrative Medical decision making narrative: Patient was turned over to me pending repeat troponin. She has had CTA. She has had EKGs troponin blood work and echo yesterday. Her OB physician is spoken to. Repeat troponin is actually a little bit lower. I went and talk with the patient. She is comfortable. We discussed follow-up. We discussed reasons to return. Lab Data Labs: Laboratory Results - last 24 hr 05/06/22 05/06/22 05/06/22 22:05 22:05 22:40 WBC 11.1 H RBC 3.03 L Hgb 8.9 L Hct 27.3 L MCV 90.1 MCH 29.4 MCHC 32.6 RDW Std Deviation 41.4 RDW Coeff of Jina 12.8 Plt Count 245 MPV 10.7 Immature Gran % (Auto) 0.600 Neut % (Auto) 81.6 H Lymph % (Auto) 6.2 L [place] % (Auto) 9.5 Eos % (Auto) 1.9 Baso % (Auto) 0.2 Absolute Neuts (auto) 9.1 H Absolute Lymphs (auto) 0.69 L Nucleated RBC % 0 Sodium 138 Potassium 3.7 Chloride 106 Carbon Dioxide 24.0 Anion Gap 8 BUN 8 Creatinine 0.58 Estim Creat Clear Calc 104.10 Est GFR (MDRD) Af Amer 154 Est GFR (MDRD) Non-Af 127 BUN/Creatinine Ratio 13.8 Glucose 93 Calcium 8.6 Troponin I High Sens 21 Urine Color Urine Clarity Urine pH Ur Specific [place] Urine Protein Urine Glucose (UA) Urine Ketones Urine Occult Blood Urine Nitrite Urine Bilirubin Urine Urobilinogen Ur Leukocyte Esterase Urine RBC Urine WBC Ur Squamous Epith Cells Urine Bacteria Urine Mucus Vag Amniotic Fld Detect Negative 05/06/22 05/07/22 23:05 00:15 WBC RBC Hgb Hct MCV MCH MCHC RDW Std Deviation RDW Coeff of Jina Plt Count MPV Immature Gran % (Auto) Neut % (Auto) Lymph % (Auto) [place] % (Auto) Eos % (Auto) Baso % (Auto) Absolute Neuts (auto) Absolute Lymphs (auto) Nucleated RBC % Sodium Potassium Chloride Carbon Dioxide Anion Gap BUN Creatinine Estim Creat Clear Calc Est GFR (MDRD) Af Amer Est GFR (MDRD) Non-Af BUN/Creatinine Ratio Glucose Calcium Troponin I High Sens 19 Urine Color Yellow Urine Clarity Clear Urine pH 7.0 Ur Specific [place] 1.005 Urine Protein Negative Urine Glucose (UA) Normal Urine Ketones Negative Urine Occult Blood Negative Urine Nitrite Negative Urine Bilirubin Negative Urine Urobilinogen 1 H Ur Leukocyte Esterase 100 H Urine RBC 0 SEEN Urine WBC 0-5 SEEN Ur Squamous Epith Cells 0 SEEN Urine Bacteria 1+ Urine Mucus 0 SEEN Vag Amniotic Fld Detect Radiography Diagnostic Testing: Clinical Impression(s) from Imaging Studies Chest CTA 05/06/22 21:49 IMPRESSION: 1. No pulmonary embolism to the segmental level. 2. No acute cardiopulmonary disease. 3. Left upper lobe 4 mm pulmonary nodule. *Fleischner Society Recommendations (Radiology 2005;237:395-400.) (Follow-up and management of nodules smaller than 8 mm detected incidentally at non-screening CT. Newly detected indeterminate nodule in persons 35 years of age or older.) Low risk patient: Minimal or absent history of smoking and of other known risk factors. <= 4mm: No followup needed >4-6mm: Follow-up CT at 12 months, if unchanged - no further followup >6-8mm: Initial Follow-up CT at 6-12 months, then at 18-24 months if no change >8mm: Follow-up CT at 3, 9, and 24 months; FDG PET scan; and or biopsy High risk patient: History of smoking or of other known risk factors. <= 4mm: Follow-up CT at 12 months, if unchanged - no further followup >4-6mm: Initial Follow-up CT at 6-12 months, then at 18-24 months if no change >6-8mm: Initial Follow-up CT at 3-6 months, then at 9-12 and 24 months if no change >8mm: Follow-up CT at 3, 9, and 24 months; FDG PET scan; and or biopsy Note: Non-solid (ground-glass) or partly solid nodules may require longer follow-up to Electronically Signed: Zachery Aviles MD at 22:52 EDT Reading Location ID and State: [address] [place] [address] Tel , Service support , Discharge Plan Triage Chief Complaint: General Illness ED Provider: January Khan Dx/Rx/DC Orders Clinical Impression: Atypical chest pain, Tachycardia Instructions: ED Chest Pain, Noncardiac, ED Pelvic Pain Preg UKO 2 or 3 Tri Stand Alone Forms: ED Work / School Excuse Primary Care Provider: Ray Carnes Referrals: Ray Carnes MD [Primary Care Provider] - Regla Jones MD [STAFF PHYSICIAN] - 5-7 Days Disposition Disposition: Home, Self Care
[2022-05-07 01:12] VITALS: BP 108/60; PULSE 120; RESP 18; O2SAT 99
== END 2022-05-07 01:13 | disposition home or self-care (01) ==
PROVIDERS: Emergency Provider Emergency Medicine; PCP Family Medicine; Visit Provider Emergency Medicine
DX: O99.513 Diseases of the respiratory system complicating pregnancy, third trimester (principal); O26.893 Other specified pregnancy related conditions, third trimester; O99.013 Anemia complicating pregnancy, third trimester; R10.2 Pelvic and perineal pain; R07.89 Other chest pain; R00.0 Tachycardia, unspecified; M54.9 Dorsalgia, unspecified; J45.909 Unspecified asthma, uncomplicated; Z3A.34 34 weeks gestation of pregnancy; Z87.891 Personal history of nicotine dependence; Z20.822 Contact with and (suspected) exposure to COVID-19
CPT/HCPCS: 71275; 80048; 81001; 84112; 84484; 85025; 87811; 93005; 96361; 96374; 96375; 99284; J7030; Q9967; A4216; J2405

== ENCOUNTER 2022-05-09 22:05 | Outpatient (CLI) | payer MEDICAID, SELFPAY ==
[2022-05-09 22:20] VITALS: BMI 24.2
[2022-05-09 22:24] VITALS: O2SAT 100
[2022-05-09 22:25] VITALS: BP 119/66; PULSE 100; TEMP 36.8
[2022-05-09 23:00] LABS: Color, Urine Yellow (Yellow); Glucose, Dipstick Normal (Normal); Ketone-Dipstick Negative (Negative); Leukocyte Esterase-Dipstick 500 /ul (Negative); Nitrite-Dipstick Negative (Negative); Occult Blood-Urine Negative /ul (Negative); Protein-Dipstick Negative (Negative); Urine Bilirubin Dipstick Negative (Negative); Urine Clarity Clear (Clear); Urine Urobilinogen 8 mg/dl (Normal); Urine pH 6.5 (5.0 - 8.0)
--- NOTE | 2022-05-11 04:27 | OB.TRI.PN_ITS ---
Progress Notes Progress Note: for contractions . Unsure if having contractions but having abdominal tightening on and off, unable to time but was nervous due to history of section x2. No leakage of fluid or vaginal bleeding. Good movement. O:135, moderate variability, accels, no decels. Infrequent uterine contractions Cervix closed, posterior Laboratory Studies: Laboratory Tests 05/09/22 Range/Units 22:45 Urine Color Yellow (Yellow) Urine Clarity Clear (Clear) Urine pH 6.5 (5.0 - 8.0) Ur Specific [place] 1.010 (1.002-1.030) Urine Protein Negative (Negative) mg/dl Urine Glucose (UA) Normal (Normal) mg/dl Urine Ketones Negative (Negative) mg/dl Urine Occult Blood Negative (Negative) /ul Urine Nitrite Negative (Negative) Urine Bilirubin Negative (Negative) mg/dL Urine Urobilinogen 8 H (Normal) mg/dl Ur Leukocyte Esterase 500 H (Negative) /ul Assessment & Plan (1) False labor: PLAN: Plan 1) False labor, PTL precautions reviewed by nursing staff 2) D/C home
== END 2022-05-09 23:45 | disposition home or self-care (01) ==
LOC: WPOUT 22:10 → WP 22:11
PROVIDERS: PCP Family Medicine; Visit Provider Advanced Practice Midwife
DX: O47.9 False labor, unspecified (principal)
CPT/HCPCS: 59025; 59050; 81002; 87086; 87088; 99218; G0378

== ENCOUNTER 2022-06-09 12:09 | Outpatient (CLI) | payer MEDICAID, SELFPAY ==
[2022-06-09 12:21] VITALS: BMI 26.3
[2022-06-09 12:28] VITALS: TEMP 36.9
[2022-06-09 12:29] VITALS: BP 126/60; PULSE 105; TEMP 36.9
[2022-06-09 12:30] VITALS: PULSE 76; O2SAT 99
--- NOTE | 2022-06-09 13:02 | OB.TRI.NOTE ---
HPI - General General Date of Admission: 06/09/22 Date of Service: 06/09/22 Chief Complaint: contractions HPI Narrative GARCIA METZ, is a 32-year-old female with history of 2 previous sections at 36 weeks gestation presents complaining contractions. She states they started at 11 PM last night. They kept her from getting much sleep. She feels them about every 5 minutes. They are mostly in her upper abdomen. She denies any vaginal bleeding or leaking of fluid. She has had good movement. PFSH PFS Medical History (Updated 06/09/22 @ 13:[address] Regla Jones MD) Anemia Anxiety Asthma Bipolar disorder CPAP (continuous positive airway pressure) dependence Depression Former smoker Migraines SHERITA (obstructive sleep apnea) Premature ventricular contraction Schizophrenia Sleep apnea Syncope Home Medications acetaminophen 500 mg tablet 500 mg PO Q6H PRN Pain 05/22/22 [History Last Taken Unknown] albuterol sulfate 90 mcg/actuation aerosol inhaler (ProAir HFA) 2 puff inhalation Q6H PRN 05/22/22 [History Last Taken Unknown] nitrofurantoin monohydrate/macrocrystals 100 mg capsule (Macrobid) 500 mg PO Q12H PRN urinary tract infection 06/09/22 [History Last Taken 06/08/22 19:00] Allergy/AdvReac Type Severity Reaction Status Date / Time No Known Allergies Allergy Verified 05/09/22 23:25 Family History (Updated 05/22/22 @ 08:44 by Daria Lange) Mother Hypertension Diabetes Father Kidney disease Surgical History (Updated 06/09/22 @ 13:[address] Regla Jones MD) H/O: Social History (Updated 05/22/22 @ 08:45 by Daria Lange) household members: children Smoking Status: Former smoker alcohol intake: never substance use type: does not use History Elective abortions Hx Para 2 Spontaneous abortions Hx # Term Pregnancies Ectopic pregnancies Hx # Pregnancies Multiple births # of living children Physical Exam Narrative Awake, alert, no acute distress. Abdomen soft, nontender nondistended, gravid. Extremities trace edema. NST FHR Rate Baby A Baseline: Normal Variability:: Moderate Accelerations:: 15 x 15 Decelerations:: None NST Reactive:: Yes FHR Category:: Category I Uterine Activity:: Irritability, no regular contractions Assessment & Plan (1) 36 weeks gestation of : PLAN: Threatened labor at 36 weeks gestation. No evidence of labor. I checked the patient she was closed thick and high. Discharged home with labor precautions. Follow-up in the office as scheduled or as needed. Anemia: Patient is on iron supplementation. History of previous section: Patient desires repeat section for delivery. (2) Previous delivery affecting :
== END 2022-06-09 13:05 | disposition home or self-care (01) ==
LOC: WPOUT 12:16 → WP 12:17
PROVIDERS: PCP Family Medicine; Referring Provider Obstetrics & Gynecology; Visit Provider Obstetrics & Gynecology
DX: O47.03 False labor before 37 completed weeks of gestation, third trimester (principal); O34.219 Maternal care for unspecified type scar from previous cesarean delivery; Z3A.36 36 weeks gestation of pregnancy; Z87.891 Personal history of nicotine dependence
CPT/HCPCS: 59025; 59050; 99218; G0378

== ENCOUNTER 2022-06-23 05:05 | Inpatient (IN) | payer MEDICAID, SELFPAY ==
[2022-06-23] VITALS (22 sets, daily range): BP systolic 91–118; BP diastolic 50–76; PULSE 48–98; RESP 14–18; TEMP 35.8–36.7; O2SAT 100; BMI 25.6
--- NOTE | 2022-06-23 | FALS_PTH ---
PATIENT: GARCIA METZ LOC: [facility] U#:[id number] AGE/SX: 32/F ROOM: WP007 RE06/23/[address]: Dr. Regla Jones MD : 1990 BED: 1 DIS: 06/25/2022 SPEC #: [id number] RECD: 06/23/22 10:13 STATUS: EMELI REKristi #: [id number] CHRIS: 06/23/22 00:[address]: Regla Jones DEPT: SURGICAL PATHOLOGY RECD BY: Alexandru Gandhi ENTERED: 06/23/22 10:13 SP TYPE: FALL TUBES OTHR DR: Dr. Ray Carnes MD Tissues: Fallopian tube Procedures: Surgery Specimen Level II HEADER OPERATION: Tubal ligation PRE-OP DIAGNOSIS: Sterilization TISSUE SUBMITTED: Fallopian tubes, tie on left MICROSCOPIC DIAGNOSIS Bilateral fallopian tubes, salpingectomy: Bilateral fallopian tubes, no pathologic diagnosis. See comment. SJ:flores 06/24/2022 COMMENT The right fallopian tube also shows focal luminal decidual changes. MICROSCOPIC DESCRIPTION Slides are reviewed. GROSS DESCRIPTION Received in fixative is one container labeled with the patient's name and designated bilateral fallopian tubes, left with stitch. The specimen consists of bilateral fallopian tubes including fimbrial ends. The right fallopian tube measures 7.5 cm in length and up to 1 cm in diameter and the left fallopian tube measures 8 cm in length and 1 cm in diameter. Sections reveal unremarkable cut surfaces. A detached fragment of fallopian tube is also noted in the container measuring 1 x 0.5 x 0.2 cm. Fabrication Engineer sections are submitted in two cassettes as follows: 1??right fallopian tube, 2 - left fallopian tube. / TEDDY:flores 06/23/2022 TC:4 CPT: 09088 x2
[2022-06-23] MEDS: Lactated Ringers 1,000 ML 999 ML IV (05:30)
[2022-06-23 05:46] LABS: Absolute Lymphocyte Count 2.44 X10^3/uL (0.83-4.51); Absolute Neutrophil Count 4.9 X10^3/uL (2.0-7.7); Basophil# 0.01 X10^3/uL; Basophil% 0.1 % (0-1); Eosinophils% 2.5 % (0-5); Hematocrit 33.3 % (37-47); Hemoglobin 10.7 g/dL (12.0-15.0); Lymphocyte # 2.44 X10^3/ul (0.83-4.51); Lymphocyte % 30.9 % (19-41); Mean Corp Hgb Conc 32.1 g/dL (32-36); Mean Corpuscular Hgb 29.6 pg (27.0-32.0); Mean Corpuscular Volume 92.2 fL (81-99); Mean Platelet Vol. 10.9 fl (6.2-12.0); Monocyte% 3.8 % (0-10); NRBC Flagged by Analyzer 0 % (0-5); Neutrophil # 4.91 X10^3/uL (2.7-7.7); Neutrophil % 62.3 % (47-70); Platelet Count 213 K/mm3 (150-450); RBC Distribution Width CV 15.9 % (11.6-14.6); RBC Distribution Width SD 53.7 fl (35.1-43.9); Red Blood Count 3.61 M/mm3 (4.2-5.4); White Blood Count 7.9 K/mm3 (4.4-11.0)
[2022-06-23] MEDS: Acetaminophen 500 MG Tablet 1000 MG PO ×3 (06:02→18:55)
[2022-06-23] MEDS: Lactated Ringers 1,000 ML 150 ML IV (06:48)
[2022-06-23] MEDS: Sodium Citrate/Citric Acid 30 ML UDC PO (06:58)
[2022-06-23] MEDS: Cefazolin 2 GM in 0.9% Normal Saline 100 ML IV (07:20)
--- NOTE | 2022-06-23 07:38 | PCM.HP.OB ---
HPI - General General Date of Admission: 06/23/22 Date of Service: 06/23/22 Chief Complaint: HPI Narrative GARCIA METZ, is a 32 F who presents Maternal Data Information Final KENZIE: 06/30/22 Final KENZIE Source: US <20 weeks Gestational age: 39 0/7 PFSH PFSH Medical History (Updated 06/23/22 @ 07:[address] Regla Jones MD) Anemia Anxiety Asthma Bipolar disorder CPAP (continuous positive airway pressure) dependence Depression Former smoker Heart disease History of prior with IUGR Migraines SHERITA (obstructive sleep apnea) Premature ventricular contraction Schizophrenia Sleep apnea Syncope Home Medications albuterol sulfate 90 mcg/actuation aerosol inhaler (ProAir HFA) 2 puff inhalation Q6H PRN uti 05/22/22 [History Last Taken Unknown] nitrofurantoin monohydrate/macrocrystals 100 mg capsule (Macrobid) 500 mg PO Q12H PRN urinary tract infection 06/09/22 [History Last Taken 3 Days Ago ~06/20/22] Allergy/AdvReac Type Severity Reaction Status Date / Time No Known Allergies Allergy Verified 06/23/22 05:54 Family History (Updated 05/22/22 @ 08:44 by Daria Lange) Mother Hypertension Diabetes Father Kidney disease Surgical History (Updated 06/09/22 @ 13:[address] Regla Jones MD) H/O: Social History (Updated 05/22/22 @ 08:45 by Daria Lange) household members: children Smoking Status: Former smoker alcohol intake: never substance use type: does not use History Elective abortions Hx Para 2 Spontaneous abortions Hx # Term Pregnancies Ectopic pregnancies Hx # Pregnancies Multiple births # of living children ROS Constitutional Constitutional: Denies fatigue, fever(s) or malaise Eyes Eyes: Denies change in vision ENT HEENT: Denies dizziness or headache(s) Cardiovascular Cardiovascular: Denies chest pain, dyspnea or lightheadedness Respiratory/Chest Respiratory/Chest: Denies cough or dyspnea Gastrointestinal Gastrointestinal: Denies change in bowel habits Genitourinary Genitourinary: Denies burning urination or genital lesions Integumentary Integumentary: Denies rash Neurologic Neurologic: Denies confusion, dizziness, headache(s), numbness or weakness Vital Signs Vital Signs Vital Signs: Weight Weight: 63.6 kg Body Mass Index (BMI) 25.6 Physical Exam Const alert General Appearance: cooperative GI GI Narrative: soft, moderate distention, fundus firm, appropriately tender. Abdominal bandage clean dry and intact Labs Labs Labs: Blood Type B POSITIVE Antibody Screen NEGATIVE Hct 33.3 % (37-47) L Hgb 10.7 g/dL (12.0-15.0) L Obstetrics US Rhogam given: No Assessment & Plan (1) with 39 completed weeks gestation: PLAN: Response and alternatives to repeat section were discussed with the patient, questions were answered to her satisfaction she desires to proceed. Desires tubal ligation. Understands is permanent, irreversible risk of failure and regret. Understands there reversible options as well as vasectomy. Patient desires to proceed with tubal sterilization in the form of bilateral salpingectomy of technically feasible, otherwise tubal with [place] clips. (2) Sterilization: (3) Previous delivery affecting : (4) Anemia:
--- NOTE | 2022-06-23 08:22 | EX.PCM.OBRPT ---
Assessment & Plan (1) Sterilization: (2) with 39 completed weeks gestation: (3) Previous delivery affecting : Maternal Data Information Final KENZIE: 06/30/22 Gestational age: 39 Details Operative Information Date of Procedure: 06/23/22 Pre-Operative Diagnosis: previous c/s Post-Operative Diagnosis: same Indications for : Repeat Elective and Desires elective sterilization Classification: Scheduled Procedure Type: bilateral salpingectomy electrical systems designer #1: Roselyn Smith Type of Anesthesia: Spinal Anesthesiologist: Kierra Benavidez Special Medications: duramorph Antibiotic Given: Ancef 2 grams IV x1 Drain: Anderson to straight drain Estimated Blood Loss: 800 Fluids Replaced: 1000 Procedure Start Time: 07:47 Procedure Stop Time: 08:28 Time of Delivery: 07:50 Findings Description of Procedure: The patient was taken to the operating room. She was prepped and draped in the dorsal supine position with a leftward tilt. A Pfannenstiel skin incision was made approximately 2 cm above the symphysis pubis and carried through to underlying layer fascia with the scalpel. The fascia was incised incised in the midline and extended laterally with the Vasquez scissors. The fascia was dissected off the rectus muscles with blunt and sharp dissection. The rectus muscles were in the midline and the peritoneum was entered bluntly. The peritoneal incision was stretched and the bladder blade was placed. The uterine incision was made in a low transverse fashion with the scalpel and extended superiorly and inferiorly with blunt dissection. The amniotic membranes were ruptured bluntly and clear amniotic fluid returned. The infant's head was brought to the incision in the flexed position and delivered without difficulty. The remainder of the infant was delivered with gentle traction and fundal pressure in the standard fashion. The mouth and nares were bulb suctioned. The cord was clamped and cut as the infant was stimulated. Cord clamping was delayed. The infant was handed off to the waiting nursing staff. The placenta was delivered with fundal massage and gentle traction in the standard fashion. The uterus was exteriorized and cleared of all clots and debris. The cervix was dilated with a ring forcep. The uterine incision was closed with #1 Vicryl in a running locked fashion. A second layer of the same suture was used in an imbricating fashion. The incision was examined and was found to be hemostatic. The tubes were identified and followed out to the fimbriated end. The LigaSure device was used to clamp, seal and transect the tube from the cornual insertion at the uterus. It was then used to clamp, seal and transect the antimesenteric portion of the tube. When the left tube was amputated, the same procedure was performed on the right tube. All the pedicles were hemostatic. The uterus was placed back into the peritoneal cavity and hemostasis was again confirmed. The rectus muscles were examined and any bleeding was Bovie cauterized. The surgical teams outer gloves were then changed. The rectus fascia was examined and any bleeding was Bovie cauterized and the rectus fascia was closed with 1 Vicryl suture in a running standard fashion. The subcutaneous tissue was examining and any bleeding was Bovie cauterized. The subcutaneous tissue was reapproximated with 3-0 Vicryl suture. The skin was closed in a subcuticular fashion by the RESIDENTIAL SALES with me present in the labor and delivery suite. I performed the remainder of the procedure with assistance. All sponge, lap, and needle counts were correct. The patient was taken to her room for recovery in a stable condition. Presentation: Positive for Vertex Amniotic Membrane Rupture Type: Artificial Amniotic Fluid Description: Clear Placental Delivery Description: Expressed Placenta Disposition: [facility] Specimen(s) Sent to Pathology: Bilateral fallopian tubes Cord Vessel Description: 3 Vessels Cord Entanglement: None A Gender: Female (1 minute): 9 (5 minute): 9 Delayed Cord Clamping: Yes Complications Complications: None Admit VTE Documentation VTE Present on Admission: No VTE Mechan Device Prophylaxis: SCD's VTE Pharm Prophylaxis Ordered: No Reason Prophylaxis Not Ordered: Procedure Not Indicated
[2022-06-23] MEDS: Oxytocin 30 units/NS 500 ml 30 UNITS/500 ML IV.SOLN 167 UNITS IV (08:45)
[2022-06-23] MEDS: Ketorolac 30 MG/ML Syringe IV ×3 (09:12→21:09)
[2022-06-23] MEDS: Lactated Ringers 1,000 ML 100 ML IV (11:53)
[2022-06-23] MEDS: Ondansetron 4 MG/2 ML Vial IV (12:16)
--- NOTE | 2022-06-23 13:00 | NURSING ---
Amado LOGAN and Gladys RN taking over pt and care at this time.
--- NOTE | 2022-06-23 18:10 | CASEMGMT ---
Social Work Labor and Delivery Unit Consult received for maternal history of bipolar and schizophrenia. Records reviewed. This mortgage or loan underwriter familiar with patient/mother of baby from prior delivery at [facility]. Plan to meet with [facility] on 06/24/2022 for assessment, resources, referrals as indicated. -WADE Oakley, PLAN EXAMINER *This note was generated with [employer] dictation software. It may contain incorrect words, spelling, and punctuation that were not noted in review of the chart prior to signing*
--- NOTE | 2022-06-23 18:30 | NURSING ---
Reviewed and agreed with Gladys RN charting.
--- NOTE | 2022-06-23 20:45 | NURSING ---
Pt's HR on pulse ox monitor went from 43 to 102 on the monitor. This RN put tele leads on pt and pt was having a PVC every 3rd beat. Pt denies any signs or symptoms. Notified Guerita Sagastume. Guerita stated since pt is asymptomatic and pt has a history of ventricular trigeminy, we will continue to monitor for any signs and symptoms. Guerita stated we do not need to keep her on tele. No further orders received.
[2022-06-23] MEDS: 0.9% Saline Lock 10 ML Syringe IV (21:09)
[2022-06-24] VITALS (7 sets, daily range): BP systolic 98–132; BP diastolic 47–82; PULSE 57–99; RESP 16–18; TEMP 36.4–36.8; O2SAT 98–100
[2022-06-24] MEDS: Acetaminophen 500 MG Tablet 1000 MG PO ×4 (00:36→18:29)
[2022-06-24] MEDS: Ketorolac 30 MG/ML Syringe IV (03:34)
[2022-06-24] MEDS: 0.9% Saline Lock 10 ML Syringe IV (03:34)
[2022-06-24 06:39] LABS: Hematocrit 25.9 % (37-47); Hemoglobin 8.4 g/dL (12.0-15.0); Mean Corp Hgb Conc 32.4 g/dL (32-36); Mean Corpuscular Hgb 29.9 pg (27.0-32.0); Mean Corpuscular Volume 92.2 fL (81-99); Mean Platelet Vol. 10.7 fl (6.2-12.0); Platelet Count 169 K/mm3 (150-450); RBC Distribution Width CV 15.9 % (11.6-14.6); RBC Distribution Width SD 53.2 fl (35.1-43.9); Red Blood Count 2.81 M/mm3 (4.2-5.4); White Blood Count 11.1 K/mm3 (4.4-11.0)
--- NOTE | 2022-06-24 07:06 | PCM.PN.OB ---
Subjective Subjective Patient seen at bedside. Resting comfortably. Denies headache, dizziness, SOB or CP. Ambulating and voiding without difficulty. Passing flatus. Breast feeding with minimal support. Pain controlled at this time. Anticipate discharge home tomorrow. Objective Data Objective Data Vital Signs: Vital Signs Temp Pulse Resp BP Pulse Ox O2 Del Method 97.5 F L 57 L 16 100/47 L 98 Room Air 06/24/22 03:31 06/24/22 05:50 06/24/22 05:50 06/24/22 03:31 06/24/22 05:50 06/24/22 05:50 Oxygen Delivery Method Room Air Weight: 140 lb 3.424 oz Body Mass Index (BMI) 25.6 Intake & Output: Intake and Output for Last 24 Hours 06/22/22 06/23/22 06/24/22 23:59 23:59 23:59 Intake Total 2614.17 / 2614.17 Output Total 1150 / 1150 750 / 750 Balance 1464.17 / 1464.17 -750 / -750 Lab / Micro Data Result Diagrams: 06/24/22 06:33 Labs: Laboratory Results - last 24 hr 06/24/22 06:33: WBC 11.1 H, RBC 2.81 L, Hgb 8.4 L, Hct 25.9 L, MCV 92.2, MCH 29.9, MCHC 32.4, RDW Std Deviation 53.2 H, RDW Coeff of Jina 15.9 H, Plt Count 169, MPV 10.7 Micro: Microbiology 06/23/22 05:30 Nasal Secretion SARS-CoV-2 Antigen (Rapid) - Final ROS Eyes Eyes: Denies blurry vision, change in vision or spots in vision ENT HEENT: Denies dizziness or headache(s) Cardiovascular Cardiovascular: Denies abdominal pain, chest pain or dyspnea Respiratory/Chest Respiratory/Chest: Denies cough, dyspnea, shortness of breath at rest or shortness of breath with exertion Gastrointestinal Gastrointestinal: Denies abdominal pain, diarrhea or vomiting Genitourinary Genitourinary: Denies change in urinary stream, difficulty urinating or dysuria Musculoskeletal Musculoskeletal: Reports none Integumentary Integumentary: Denies rash Neurologic Neurologic: Denies dizziness, headache(s), memory loss or weakness Physical Exam Narrative Dressing is dry and intact Const alert and no apparent distress General Appearance: cooperative and comfortable Exam Limitations: no limitations HEENT normocephalic Eyes General Eye: normal appearance of both eyes Neck full ROM General: normal visual inspection Chest Chest: symmetrical chest wall rise Resp normal respiratory effort and normal air movement Effort and Inspection: symmetric chest movement Auscultation: clear to auscultation bilaterally Cardio regular rate and regular rhythm GI normal to inspection, nondistended, normoactive bowel sounds Back/Spine normal ROM Extremity full ROM and no calf tenderness General Extremity: normal exam except as noted Skin no rashes or lesions noted Neuro CN's II-XII intact bilaterally Psych mental status grossly normal Assessment & Plan (1) Sterilization: (2) Previous delivery affecting : (3) Anemia: (4) Schizophrenia: (5) Bipolar disorder: (6) SHERITA (obstructive sleep apnea): (7) Premature ventricular contraction: PLAN: Plan PO Day 1 Repeat C/S Pain control Routine care Increase ambulation today support Start oral iron supplementation Anticipate discharge home tomorrow
[2022-06-24] MEDS: Ibuprofen 600 MG Tablet PO ×3 (09:45→22:04)
[2022-06-24] MEDS: Senna/Docusate Sodium 1 Tablet PO (09:45)
[2022-06-24] MEDS: Ferrous Sulfate 325 MG Tablet PO (12:23)
[2022-06-24] MEDS: oxyCODONE 5 MG Tablet PO (14:55)
--- NOTE | 2022-06-24 18:39 | NURSING ---
Pt told this RN that around 1700 when up to the bathroom, pt passed a decent size clot and referred to it to close to the size of a golf ball. Pt never contacted this RN to evaluate the clot or pt bleeding, pt stated she felt fine and had no other symptoms. During previous assessments, pt bleeding on pad has been minimal and no other clots noted by this RN. Educated pt about calling RN if any other clots are passed to evaluate.
[2022-06-25] MEDS: Acetaminophen 500 MG Tablet 1000 MG PO ×4 (00:49→18:19)
[2022-06-25 02:50] VITALS: BP 124/43; PULSE 65; RESP 18; TEMP 36.4; O2SAT 100
[2022-06-25] MEDS: oxyCODONE 5 MG Tablet PO (02:56)
[2022-06-25] MEDS: Ibuprofen 600 MG Tablet PO ×3 (04:23→15:54)
--- NOTE | 2022-06-25 07:00 | PCM.PN.OB ---
Subjective Subjective Pt doing well. She feels lightheaded and dizzy with ambulation. Pain is well controlled. Tolerating regular diet. Voiding without difficulty. Lochia is normal. She desires discharge today pending CBC results. Objective Data Objective Data Vital Signs: Vital Signs Temp Pulse Resp BP Pulse Ox O2 Del Method 97.6 F L 65 18 124/43 H 100 Room Air 06/25/22 02:50 06/25/22 02:50 06/25/22 02:50 06/25/22 02:50 06/25/22 02:50 06/25/22 02:50 Oxygen Delivery Method Room Air Weight: 140 lb 3.424 oz Body Mass Index (BMI) 25.6 Intake & Output: Intake and Output for Last 24 Hours 06/23/22 06/24/22 06/25/22 23:59 23:59 23:59 Intake Total 2614.17 / 2614.17 Output Total 1150 / 1150 750 / 750 Balance 1464.17 / 1464.17 -750 / -750 Lab / Micro Data Result Diagrams: 06/24/22 06:33 Micro: Microbiology 06/23/22 05:30 Nasal Secretion SARS-CoV-2 Antigen (Rapid) - Final Assessment & Plan (1) Delivery by section: PLAN: - Routine PO care. Doing well. VSS and blood work reviewed. Likely discharge later today pending CBC results as pt is symptomatic from anemia. (2) Acute on chronic anemia: PLAN: - Check CBC this AM. Discussed possible IV iron or blood transfusion with patient pending results. (3) Bipolar disorder: (4) Schizophrenia:
[2022-06-25 08:35] VITALS: BP 112/68; PULSE 98; RESP 20; TEMP 36.7; O2SAT 100
[2022-06-25 09:15] LABS: Hematocrit 26.9 % (37-47); Hemoglobin 8.6 g/dL (12.0-15.0); Mean Corpuscular Hgb 29.6 pg (27.0-32.0); Mean Corpuscular Volume 92.4 fL (81-99); Mean Platelet Vol. 10.8 fl (6.2-12.0); Platelet Count 192 K/mm3 (150-450); RBC Distribution Width CV 16.3 % (11.6-14.6); RBC Distribution Width SD 55.1 fl (35.1-43.9); Red Blood Count 2.91 M/mm3 (4.2-5.4); White Blood Count 12.4 K/mm3 (4.4-11.0)
[2022-06-25 09:58] LABS: Pathology Specimen OB SEE PATHOLOGY REPORT
[2022-06-25] MEDS: Senna/Docusate Sodium 1 Tablet PO (10:14)
[2022-06-25] MEDS: Ferrous Sulfate 325 MG Tablet PO (11:56)
[2022-06-25 14:32] VITALS: BP 119/52; PULSE 104; RESP 18; TEMP 36.8; O2SAT 100
--- NOTE | 2022-06-25 17:54 | DS.PCM_ITS ---
Providers Date of Admission: 06/23/22 Primary Care Physician: Dr. Ray Carnes MD Reason For Visit: SCHEDULED /CSECTION DELIVERY Diagnosis Discharge Diagnosis (1) Delivery by section: Status: Acute (2) Acute on chronic anemia: Status: Chronic Code(s): D64.9 - Anemia, unspecified (3) Bipolar disorder: Status: Acute Code(s): F31.9 - Bipolar disorder, unspecified (4) Schizophrenia: Status: Acute Code(s): F20.9 - Schizophrenia, unspecified Plan PO Day 1 Repeat C/S Pain control Routine care Increase ambulation today support Start oral iron supplementation Anticipate discharge home tomorrow Medications at Discharge Home Medications albuterol sulfate 90 mcg/actuation aerosol inhaler (ProAir HFA) 2 puff inhalatio n Q6H PRN uti 05/22/22 nitrofurantoin monohydrate/macrocrystals 100 mg capsule (Macrobid) 500 mg PO Q12H PRN urinary tract infection 06/09/22 Hospital Course Operations section Summary of Care Provided Hospital Course: Patient was for a scheduled repeat section. Hospital course was uneventful. Physical Exam Narrative Dressing is dry and intact Const alert and no apparent distress General Appearance: cooperative and comfortable Exam Limitations: no limitations HEENT normocephalic Eyes General Eye: normal appearance of both eyes Neck full ROM General: normal visual inspection Chest Chest: symmetrical chest wall rise Resp normal respiratory effort and normal air movement Effort and Inspection: symmetric chest movement Auscultation: clear to auscultation bilaterally Cardio regular rate and regular rhythm GI normal to inspection, nondistended, normoactive bowel sounds Back/Spine normal ROM Extremity full ROM and no calf tenderness General Extremity: normal exam except as noted Skin no rashes or lesions noted Neuro CN's II-XII intact bilaterally Psych mental status grossly normal Weight / BMI Weight Weight: 140 lb 3.424 oz Body Mass Index (BMI) 25.6 ABG / Lab / Microbiology Data Result Diagrams: 06/25/22 08:50 Laboratory: Laboratory Results - last 24 hr 06/25/22 08:50: WBC 12.4 H, RBC 2.91 L, Hgb 8.6 L, Hct 26.9 L, MCV 92.4, MCH 29.6, MCHC 32.0, RDW Std Deviation 55.1 H, RDW Coeff of Jina 16.3 H, Plt Count 192, MPV 10.8 Microbiology: Microbiology 06/23/22 05:30 Nasal Secretion SARS-CoV-2 Antigen (Rapid) - Final D/C Instructions Discharge Diet: No restrictions Discharge Activity: May Shower May resume sexual activity in: 6-8 weeks Weight Bearing Status: Weight bearing as tolerated Call your doctor if your incision/area has: Continuous Slow Oozing, Sudden Increased Bleeding, Increased Pain/ Swelling, Increased Redness, Foul Smelling Discharge and Swelling at the incision site Call your doctor if you observe: Fever of 101 or Higher, Inability to urinate, Inability to have a bowel movement, Using more than 1 pad per hour, Dizziness, Chest pain, Calf discomfort and Uncontrolled pain Remove Dressing in: leave in place till F/U Cleanse incision/area with: Keep Dressing Clean & Dry Additional Instructions: KEEP CARDIOLOGY APPOINTMENT ON 07/09/22 Please Follow Up With: Regla Jones MD When: 1 week for incision check Meaningful Use Info Meaningful Use Diagnoses (Choose all that apply): None applicable Discharge Plan Admission Admit Date/Time: 06/23/22 05:05 Primary Reason for Your Visit: Repeat Section Attending Provider: Regla Jones Primary Care Provider: Ray Carnes Discharge Orders/Prescriptions Prescriptions: No Action albuterol sulfate [ProAir HFA] 90 mcg/actuation HFA aerosol inhaler 2 puff inhalation Q6H PRN (Reason: uti) nitrofurantoin monohyd/m-cryst [Macrobid] 100 mg Capsule 500 mg PO Q12H PRN (Reason: urinary tract infection) Rx Instructions: must administer with a meal/food Referrals / Follow Up: Ray Carnes MD [Primary Care Provider] - Disposition Disposition (needs filled in before D/C Order can be placed): Home, Self Care
--- NOTE | 2022-06-30 16:24 | NURSING ---
Follow-up questions asked by GIOVANNA Morris, IBCLC [facility] No concerns reported from hospital stay. Pt. feels like things are going well and appreciated that nurses visited her who helped deliver her twins 12 years ago. No questions at this time.
== END 2022-06-25 18:30 | disposition home or self-care (01) | DRG 539 ==
PROVIDERS: Obstetrics & Gynecology; Admitting Provider Obstetrics & Gynecology; PCP Family Medicine; Visit Provider Obstetrics & Gynecology
PROC: 10D00Z1 Extraction of Products of Conception, Low, Open Approach (ICD-10-PCS; CPT 59514; principal; 2022-06-23 07:15)
DX: O34.219 Maternal care for unspecified type scar from previous cesarean delivery (principal); O99.42 Diseases of the circulatory system complicating childbirth; F20.9 Schizophrenia, unspecified; F31.9 Bipolar disorder, unspecified; J45.909 Unspecified asthma, uncomplicated; G47.33 Obstructive sleep apnea (adult) (pediatric); O99.02 Anemia complicating childbirth; Z30.2 Encounter for sterilization; Z3A.39 39 weeks gestation of pregnancy; Z37.0 Single live birth; Z87.891 Personal history of nicotine dependence
CPT/HCPCS: 85025; 85027; 86850; 86900; 86901; 87426; 88302; 99218; J7120; A4216; G0378; J2405

== ENCOUNTER → 2022-07-14 | Outpatient (CLI) | payer MEDICAID, SELFPAY | END | disposition home or self-care (01) | LOC: PSN 09:54 | PROVIDERS: PCP Family Medicine; Referring Provider Internal Medicine Cardiovascular Disease; Visit Provider Internal Medicine Cardiovascular Disease | DX: I49.3 Ventricular premature depolarization (principal); R55 Syncope and collapse | CPT/HCPCS: 93225; 93226 ==

== ENCOUNTER → 2022-08-07 | Outpatient (CLI) | payer MEDICAID, SELFPAY ==
[2022-08-07 09:34] LABS: Hematocrit 37.9 % (37-47); Hemoglobin 11.9 g/dL (12.0-15.0); Mean Corp Hgb Conc 31.4 g/dL (32-36); Mean Corpuscular Hgb 28.5 pg (27.0-32.0); Mean Corpuscular Volume 90.9 fL (81-99); Mean Platelet Vol. 10.8 fl (6.2-12.0); Platelet Count 272 K/mm3 (150-450); RBC Distribution Width CV 13.8 % (11.6-14.6); RBC Distribution Width SD 46.4 fl (35.1-43.9); Red Blood Count 4.17 M/mm3 (4.2-5.4); White Blood Count 7.9 K/mm3 (4.4-11.0)
[2022-08-07 10:00] LABS: Internal QC Validated? YES +Cl - CLEAR BKGD; Pregnancy, Serum, hCG Quali. NEGATIVE Negative
--- NOTE | 2022-08-07 12:35 | TILTTABLE_ITS ---
Staff Staff: Tiffani Davis and Oksana Bryant Summary Protocol: 70 Degree Upright Tilt Pre Test Resting HR: 94 Pre Test Resting BP: 135/88 Minimum Test HR: 80 Maximum Test HR: 99 Minimum Test BP: 109/81 Maximum Test BP: 139/66 Reason for Test Termination: Reached Maximum Test Time Physician Tilt Table Report Patient's Physicians Primary Care Physician: Ray Carnes Personnel Associate: Garcia Sanchez Indications/Diagnosis: Dizziness; lightheadedness; syncope Procedure Comments: The patient was brought to the tilt table laboratory and laid supine on the tilt table. The patient was awake and alert and warm and dry. The baseline heart rate was 94 bpm with a baseline blood pressure 135/88 mmHg. The cardiac rhythm was sinus rhythm with frequent PVCs in a pattern of ventricular trigeminy. The patient was placed in the 70 degree upright tilt table position for approximately 30 minutes. The patient remained alert and oriented and warm and dry. The initial heart rate was 80 bpm with a blood pressure of 122/78 mmHg. The maximal heart rate was 99 bpm. The maximal blood pressure was 139/66 mmHg. The concluding heart rate was 90 bpm with a concluding blood pressure 109/81 mmHg. The patient continued in sinus rhythm with occasional to frequent PVCs and patterns including ventricular bigeminy and trigeminy. The patient initially had no symptoms and then noted slight lightheadedness and the sensation that her arms felt cooler and her legs felt like Jell-O. The patient did not lose consciousness. The patient was returned to the supine position. The patient remained alert and oriented and warm and dry. Her concluding heart rate was 89 bpm with a blood pressure 130/74 mmHg. The cardiac rhythm continue to demonstrate evidence of sinus rhythm with occasional to frequent PVCs including intermittent patterns of ventricular bigeminy. The patient was eventually released from the tilt table laboratory. Summary: 70 degree upright tilt table study considered negative for reproducible vasovagal/neurocardiogenic mediated syncope. This note was generated using a voice recognition system and there may be incorrect words, spelling or punctuation that were not noted when reviewing the office note prior to saving.
[2022-08-07 12:39] VITALS: BP 109/81; BP 135/88; BP 139/66
== END | disposition home or self-care (01) ==
PROVIDERS: PCP Family Medicine; Visit Provider Internal Medicine Cardiovascular Disease
DX: R55 Syncope and collapse (principal); R01.1 Cardiac murmur, unspecified; R00.2 Palpitations; I49.3 Ventricular premature depolarization
CPT/HCPCS: 36415; 84703; 85027; 93660; J7040; A4216

== ENCOUNTER 2022-10-08 11:25 | Emergency (ER) | payer MEDICAID, SELFPAY ==
[2022-10-08 11:25] VITALS: BP 119/88; BP 124/77; PULSE 78; PULSE 84; RESP 16; TEMP 36.3; O2SAT 100; O2SAT 99; BMI 21.7
--- NOTE | 2022-10-08 12:24 | EDS_ITS ---
HPI History of Present Illness Chief Complaint: Chest Pain Informant: patient Onset/Context/Timing Onset: Today (3-4 hours) Activity at onset: gradual and onset Timing: Continuous Quality: Positive for Tightness Location: Substernal (No radiation) Current Severity: Moderate Maximum Severity: Moderate Worsened By: - (Standing up straight) Relieved By: - (Bending forward) Associated Symptoms: Positive for Dyspnea (A little); Negative for Nausea, Vomiting, Diaphoresis, Cough, Fever, Lightheadedness or Palpitations Narrative Narrative: Patient has been having diffuse chest tightness and mild shortness of breath for the last several hours. She has history of asthma, is a smoker, and agrees that it feels similar to asthma issues she has had in the past, she does not have severe asthma problems very often. She denies having what feels like a URI lately, or any coughing or fevers. No leg pain or swelling. She states it sometimes is a little worse to take a breath but largely nonpleuritic discomfort. She denies any obvious triggers that could have made her asthma flareup today. [facility] Medical History Acute on chronic anemia Anemia Anxiety Asthma Bipolar disorder CPAP (continuous positive airway pressure) dependence Depression Former smoker Heart disease History of prior with IUGR Migraines SHERITA (obstructive sleep apnea) Premature ventricular contraction Schizophrenia Sleep apnea Sterilization Syncope Home Medications albuterol sulfate 90 mcg/actuation aerosol inhaler (ProAir HFA) 1 inh inhalation Q6H PRN shortness of breath or wheezing #8.5 grams 10/08/22 [Rx Last Taken U nknown] prednisone 20 mg tablet 40 mg PO DAILY #10 TABLETS 10/08/22 [Rx Last Taken Unknown] Allergy/AdvReac Type Severity Reaction Status Date / Time No Known Allergies Allergy Verified 10/08/22 11:26 Family History (Updated 05/22/22 @ 08:44 by Daria Lange) Mother Hypertension Diabetes Father Kidney disease Surgical History H/O: Social History household members: children Smoking Status: Current every day smoker tobacco type: cigarettes alcohol intake: never substance use type: does not use caffeine: No ROS ROS ED Constitutional Constitutional ED: Denies chills or fever(s) Eyes Eyes: Denies change in vision or diplopia ENT ENT ED: Denies rhinorrhea or sore throat Cardiovascular Cardiovascular: Reports chest pain; Denies palpitations Respiratory/Chest Respiratory/Chest: Reports dyspnea; Denies cough Gastrointestinal Gastrointestinal: Denies abdominal pain, diarrhea, nausea or vomiting Genitourinary Genitourinary ED: Denies dysuria or hematuria Musculoskeletal Musculoskeletal: Denies back pain or neck pain Integumentary Denies abscess or rash Neurologic Neurologic: Denies headache(s), paresthesias or weakness Psychiatric Psychiatric: Denies anxiety or suicidal thoughts EXAM Physical Exam Const Vital Signs: 10/08/22 11:25 10/08/22 11:25 10/08/22 11:35 Temperature 97.3 F L Temperature Source Temporal Pulse Rate 78 84 Respiratory Rate 16 16 Respiratory Effort Normal Non-Labored Respiratory Pattern Normal Blood Pressure 124/77 H 119/88 H Blood Pressure Mean 92 98 Pulse Ox 99 100 Oxygen Delivery Method Room Air Room Air 10/08/22 12:48 10/08/22 14:14 Temperature Temperature Source Pulse Rate 78 87 Respiratory Rate 18 16 Respiratory Effort Respiratory Pattern Normal Blood Pressure 114/82 H Blood Pressure Mean 92 Pulse Ox 100 Oxygen Delivery Method Positive well nourished and well developed General Appearance ED: well developed and NAD HEENT Reports moist mucous membranes normocephalic and atraumatic Eyes PERRL and EOMs intact bilaterally Neck full ROM and supple Chest Wall inspection of chest normal and palpation of chest normal Resp normal respiratory effort and clear to auscultation bilaterally Effort and Inspection: able to speak in complete sentences Cardio regular rate, regular rhythm and no murmurs Rate: Negative for tachycardic GI non-tender and non-distended Auscultation: normoactive bowel sounds Palpation: soft Back/Spine no CVA tenderness General Back: other FROM Extremity normal to inspection General Extremety ED: Negative for edema, pulses abnormal or tenderness General Extremity: Negative for edema or pulses abnormal Neuro oriented x3, CN's II-XII intact bilaterally and no sensory deficits noted Sensorium / Orientation: awake and alert Motor Exam: strength 5/5 throughout Psych mental status grossly normal Skin no rashes or lesions noted and no wounds MDM MDM MDM Narrative Medical decision making narrative: Chest x-ray 2 views of my interpretation normal radiology in agreement. EKG is normal on my interpretation. Patient was given an albuterol treatment which did help her symptoms. I think this is asthmatic, I see no evidence of pneumonia on her chest x-ray or pneumothorax or other acute abnormality and I do not think this is cardiac, nor do I think she needs other emergent work-up. We will place her on a short course of prednisone, prescribe her an albuterol inhaler which she does not have, and advised close outpatient follow-up or return if worse or developing new symptoms. She is comfortable with that plan. Radiography Diagnostic Testing: Clinical Impression(s) from Imaging Studies Chest X-Ray 10/08/22 12:24 IMPRESSION: Normal x-ray examination of the chest. Electronically Signed: Ben Muñoz MD at 12:51 EST , Rhythm Strip Rhythm Strip: Sinus Rhythm Rate: 85 Ectopy: None EKG Initial EKG: Attestation: I personally reviewed and interpreted this EKG as follows: Interpretation: Sinus Rhythm and No Acute Injury Pattern Prior EKG tracings: available for review Prior: Unchanged Discharge Plan Triage Chief Complaint: Chest Pain ED Provider: Rodrigo Garibay Dx/Rx/DC Orders Clinical Impression: Acute asthma exacerbation, Chest tightness Instructions: Asthma Prescriptions: New prednisone 20 mg tablet 40 mg PO DAILY Qty: 10 0RF Changed albuterol sulfate [ProAir HFA] 90 mcg/actuation HFA aerosol inhaler 1 inh inhalation Q6H PRN (Reason: shortness of breath or wheezing) Qty: 8.5 0RF Primary Care Provider: Ray Carnes Referrals: Ray Carnes MD [Primary Care Provider] - 3-5 Days if not improving Disposition Disposition: Home, Self Care
--- NOTE | 2022-10-08 12:24 | RAD_ITS ---
STUDY: X-RAY CHEST REASON FOR EXAM: Female, 32 years old. Chest pain TECHNIQUE: PA and lateral views of the chest. COMPARISON: None. FINDINGS: EKG electrode are seen. The lungs are clear and expanded. There is no demonstrated pleural abnormality. Normal size heart. Normal mediastinum and coco. Normal visualized pulmonary arteries. Normal visualized aortic arch and descending thoracic aorta. Normal visualized thoracic spine. Normal visualized ribs, clavicles, and shoulders. There is no demonstrated abnormality of the visualized soft tissue structures of the upper abdomen. RAD/Chest PA and Lateral IMPRESSION: Normal x-ray examination of the chest. Electronically Signed: Ben Muñoz MD at 12:51 EST ,
[2022-10-08] MEDS: Albuterol 2.5 MG/3 ML VIAL.NEB. INHALATION (12:42)
[2022-10-08 12:48] VITALS: PULSE 78; RESP 18
[2022-10-08 14:14] VITALS: BP 114/82; PULSE 87; RESP 16; O2SAT 100
[2022-10-08] MEDS: predniSONE 20 MG Tablet 40 MG PO (14:35)
== END 2022-10-08 14:46 | disposition home or self-care (01) ==
PROVIDERS: Emergency Provider Emergency Medicine; PCP Family Medicine; Visit Provider Emergency Medicine
DX: J45.901 Unspecified asthma with (acute) exacerbation (principal); F17.210 Nicotine dependence, cigarettes, uncomplicated; R07.89 Other chest pain; Z79.51 Long term (current) use of inhaled steroids
CPT/HCPCS: 71046; 93005; 94640; 99284; A4216

== ENCOUNTER 2023-06-10 17:50 | Emergency (ER) | payer MEDICAID, SELFPAY ==
[2023-06-10 17:52] VITALS: BP 116/72; PULSE 84; RESP 18; TEMP 36.5; O2SAT 100; BMI 29.2
[2023-06-10 19:00] LABS: Absolute Neutrophil Count 4.3 X10^3/uL (2.0-7.7); Basophil# 0.03 X10^3/uL; Basophil% 0.3 % (0-1); Eosinophil# 0.59 X10^3/uL; Eosinophils% 6.7 % (0-5); Hematocrit 37.9 % (37-47); Hemoglobin 12.2 g/dL (12.0-15.0); Lymphocyte % 35.3 % (19-41); Mean Corp Hgb Conc 32.2 g/dL (32-36); Mean Corpuscular Hgb 29.4 pg (27.0-32.0); Mean Corpuscular Volume 91.3 fL (81-99); Mean Platelet Vol. 10.7 fl (6.2-12.0); Monocyte# 0.73 X10^3/uL; Monocyte% 8.3 % (0-10); NRBC Flagged by Analyzer 0 % (0-5); Neutrophil % 49.2 % (47-70); Platelet Count 246 K/mm3 (150-450); RBC Distribution Width CV 12.4 % (11.6-14.6); Red Blood Count 4.15 M/mm3 (4.2-5.4); White Blood Count 8.8 K/mm3 (4.4-11.0)
--- NOTE | 2023-06-10 19:08 | EDS_ITS ---
HPI History of Present Illness Chief Complaint: Chest Pain Informant: patient Narrative Narrative: Patient presents with some chest pain. She states she has an area in the left side of the chest that hurts and sometimes it radiates up toward the neck. She states she gets this 2 or 3 times a week for months if not years. Sometimes it gets worse when she has asthma exacerbation other times it happens by itself. Its been happening a little bit more today than normal. But it is the same pattern and type of pain. She is not having it now. Nothing really makes it better or worse. Although she has asthma she is not on any routine medicines for this. She has never had DVT PE recent travel surgery immobilization or family history of DVT or PE. She has no leg pain or swelling. She has no history of high blood pressure cholesterol diabetes or family history of heart disease. She states she is a former smoker. [facility] Medical History Acute on chronic anemia Anemia Anxiety Asthma Bipolar disorder CPAP (continuous positive airway pressure) dependence Depression Former smoker Heart disease History of prior with IUGR Migraines SHERITA (obstructive sleep apnea) Premature ventricular contraction Schizophrenia Sleep apnea Sterilization Syncope Home Medications albuterol sulfate 90 mcg/actuation aerosol inhaler (ProAir HFA) 1 inh inhalation Q6H PRN shortness of breath or wheezing #8.5 grams 10/08/22 [Rx Last Taken Unknown] prednisone 20 mg tablet 40 mg (2 x 20 mg) PO DAILY #10 TABLETS 10/08/22 [Rx Last Taken Unknown] naproxen 500 mg tablet (Naprosyn) 500 mg PO BID PRN pain #20 tabs 06/10/23 [Rx Last Taken Unknown] Allergy/AdvReac Type Severity Reaction Status Date / Time No Known Allergies Allergy Verified 06/10/23 17:51 Family History Mother Hypertension Diabetes Father Kidney disease Surgical History H/O: Social History household members: children Smoking Status: Current every day smoker tobacco type: cigarettes alcohol intake: never substance use type: does not use caffeine: No ROS ROS ED ROS Narrative A complete review of systems was performed and is negative except as documented in the history of present illness. Some specific details below. Constitutional: No recent fevers or chills. No malaise. She does not feel systemically ill. EYE: No discharge itching or visual change. ENT: No difficulty swallowing. No swelling. No pain. No reflux symptoms. CV: See history of present illness. No palpitations. No syncope or presyncope. Respiratory: Patient has a history as a asthma but does not feel short of breath with this. She does not think she has been wheezing or coughing. GI: No abdominal pain. No nausea vomiting diarrhea. : No frequency dysuria or hematuria. Musculoskeletal: No recent trauma. No pains. No swelling. Skin: No rash. Nondiaphoretic. Neuro: No weakness or numbness. Endocrine: No polyuria or polydipsia. EXAM Physical Exam Narrative Exam Narrative: CONSTITUTIONAL: Patient is nontoxic in appearance. The patient looks comfortable. Work of breathing looks normal. She is laying flat in bed on her left side looks comfortable. HEENT: No notable trauma. Mucous membranes moist. No sinus tenderness. No indication of pain with swallowing. EYES: No conjunctival injection. No proptosis. NECK:No JVD. No stridor. CARDIOVASCULAR: Regular rate. Regular rhythm. No notable murmur. No JVD. Pulses are normal x4. There is reproducible left-sided parasternal chest pain in the area where she has discomfort but no skin changes. RESPIRATORY: No respiratory distress. Breathing is unlabored. No wheezes. No rhonchi. No rales. No pain with a deep breath. Saturations are normal at 99 to 100% on room air on the monitor showing no hypoxia. GASTROINTESTINAL: Not distended. Bowel sounds are normal. No tenderness. No guarding. No rebound. No palpable mass. No bruit is heard. GENITOURINARY: No tenderness over the bladder. No CVA tenderness. MUSCULOSKELETAL: Atraumatic. Legs are quite thin and there is no peripheral edema. No cord. No tenderness along the deep venous system. No asymmetry. No distended veins. NEUROLOGICAL: Patient is alert and appropriate. No focal deficit noted. SKIN: No noted rashes. No diaphoresis. PSYCHIATRIC: Patient is calm. Mood is appropriate. Const Vital Signs: 06/10/23 17:52 06/10/23 19:32 06/10/23 19:33 Temperature 97.7 F L Temperature Source Temporal Pulse Rate 84 85 Respiratory Rate 18 16 Respiratory Pattern Blood Pressure 116/72 116/67 Blood Pressure Mean 86 83 Pulse Ox 100 100 Oxygen Delivery Method Room Air Room Air Room Air 06/10/23 19:20 Temperature Temperature Source Pulse Rate 87 Respiratory Rate 18 Respiratory Pattern Normal Blood Pressure Blood Pressure Mean Pulse Ox Oxygen Delivery Method MDM MDM MDM Narrative Medical decision making narrative: Although patient does not have significant wheezing, she does have a history of bronchospasm. I will try an albuterol/ipratropium breathing treatment to see if this helps. We will do blood work and chest x-ray. We will reassess the patient. CBC shows overall normal values including white count hemoglobin and platelets. Electrolytes show no acute abnormalities. Minimal elevation of chloride which is nonspecific. Troponin is normal at 19. My independent interpretation of her single view AP chest x-ray shows no acute process. No infiltrate. No pneumothorax. Final reading is similar. Patient is PERC negative. She does feel little better with breathing treatment. But I do not think she needs steroids. She has albuterol at home. I will write for nonsteroidals. She has reproducible left-sided chest pain with out tachycardic tachypnea hypoxia abnormal troponin and her PERC is negative. Lab Data Attestation: I reviewed the patient's lab results. Labs: Laboratory Results - last 24 hr 06/10/23 18:45 WBC 8.8 RBC 4.15 L Hgb 12.2 Hct 37.9 MCV 91.3 MCH 29.4 MCHC 32.2 RDW Std Deviation 41.0 RDW Coeff of Jina 12.4 Plt Count 246 MPV 10.7 Immature Gran % (Auto) 0.200 Neut % (Auto) 49.2 Lymph % (Auto) 35.3 Taylor % (Auto) 8.3 Eos % (Auto) 6.7 H Baso % (Auto) 0.3 Absolute Neuts (auto) 4.3 Absolute Lymphs (auto) 3.10 Nucleated RBC % 0 Sodium 140 Potassium 3.5 Chloride 109 H Carbon Dioxide 28.0 Anion Gap 3 L BUN 11 Creatinine 0.72 Estim Creat Clear Calc 83.08 Est GFR (MDRD) Af Amer 119 Est GFR (MDRD) Non-Af 99 BUN/Creatinine Ratio 15.3 Glucose 72 L Calcium 8.7 Troponin I High Sens 19 Radiography Diagnostic Testing: Clinical Impression(s) from Imaging Studies Chest X-Ray 06/10/23 19:08 IMPRESSION: Normal x-ray examination of the chest. Electronically Signed: Noel Ochoa MD at 19:37 EDT , Discharge Plan Triage Chief Complaint: Chest Pain ED Provider: Andrea Villatoro Dx/Rx/DC Orders Clinical Impression: Left-sided chest pain, History of asthma Instructions: ED Chest Pain, Uncertain Cause Prescriptions: New naproxen [Naprosyn] 500 mg tablet 500 mg PO BID PRN (Reason: pain) Qty: 20 0RF No Action prednisone 20 mg tablet 40 mg PO DAILY Qty: 10 0RF albuterol sulfate [ProAir HFA] 90 mcg/actuation HFA aerosol inhaler 1 inh inhalation Q6H PRN (Reason: shortness of breath or wheezing) Qty: 8.5 0RF Primary Care Provider: Ray Carnes Referrals: Ray Carnes MD [Primary Care Provider] - 3-5 Days if not improving Disposition Disposition: Home, Self Care
--- NOTE | 2023-06-10 19:08 | RAD_ITS ---
STUDY: X-RAY CHEST REASON FOR EXAM: Female, 33 years old. chest pain TECHNIQUE: Single AP portable view of the chest. COMPARISON: 10/06/2022. FINDINGS: The lungs are clear and expanded. There is no demonstrated pleural abnormality. Normal size heart. Normal mediastinum and coco. Normal visualized pulmonary arteries. Normal visualized aortic arch and descending thoracic aorta. Normal visualized thoracic spine. Normal visualized ribs, clavicles, and shoulders. There is no demonstrated abnormality of the visualized soft tissue structures of the upper abdomen. RAD/Chest 1 View (Portable) IMPRESSION: Normal x-ray examination of the chest. Electronically Signed: Noel Ochoa MD at 19:37 EDT ,
[2023-06-10 19:20] VITALS: PULSE 87; RESP 18
[2023-06-10] MEDS: Ipratropium/Albuterol Sulfate 3 ML AMPUL.NEB INHALATION (19:20)
[2023-06-10 19:29] LABS: Anion Gap 3 (5-15); BUN 11 mg/dL (7-18); BUN/Creat Ratio 15.3 RATIO (10-20); Calcium,Total 8.7 mg/dL (8.5-10.1); Chloride 109 mmol/L (98-107); Creatinine, Serum 0.72 mg/dL (0.55-1.02); EST Glomerular Filtration Rate 99 mL/min (>60); Est Glom Filt Rate - Afr Amer 119 mL/min (>60); Estimated Creatinine Clearance 83.08 ml/min; Glucose 72 mg/dL (74-106); Potassium 3.5 mmol/L (3.5-5.1); Sodium Level 140 mmol/L (136-145); Troponin-I HS (w/2H Reflex) 19 pg/mL (3.0-54.0)
[2023-06-10 19:32] VITALS: BP 116/67; PULSE 85; RESP 16; O2SAT 100
[2023-06-10 20:22] VITALS: BP 131/97; PULSE 101; RESP 18; O2SAT 99
[2023-06-10 20:36] VITALS: BP 123/74; PULSE 86; RESP 14; O2SAT 98
[2023-06-10 20:56] LABS: Reflex Troponin-HS? (from REC) Y
== END 2023-06-10 20:51 | disposition home or self-care (01) ==
PROVIDERS: Emergency Provider Emergency Medicine; PCP Family Medicine; Visit Provider Emergency Medicine
DX: R07.9 Chest pain, unspecified (principal); J45.909 Unspecified asthma, uncomplicated; G47.33 Obstructive sleep apnea (adult) (pediatric); F17.210 Nicotine dependence, cigarettes, uncomplicated
CPT/HCPCS: 71045; 80048; 84484; 85025; 93005; 94640; 99284

== ENCOUNTER 2023-09-06 08:19 | Emergency (ER) | payer MEDICAID, SELFPAY ==
[2023-09-06 08:20] VITALS: BP 123/83; PULSE 78; RESP 18; TEMP 36.7; O2SAT 100; BMI 26.9
[2023-09-06 08:22] VITALS: BP 123/83; PULSE 75; RESP 18; TEMP 36.7; O2SAT 100
--- NOTE | 2023-09-06 08:40 | EDS_ITS ---
HPI History of Present Illness Chief Complaint: Chest Pain [facility] Medical History Acute on chronic anemia Anemia Anxiety Asthma Bipolar disorder CPAP (continuous positive airway pressure) dependence Depression Former smoker Heart disease History of prior with IUGR Migraines SHERITA (obstructive sleep apnea) Premature ventricular contraction Schizophrenia Sleep apnea Sterilization Syncope Home Medications albuterol sulfate 90 mcg/actuation aerosol inhaler (ProAir HFA) 1 inh inhalation Q6H PRN shortness of breath or wheezing #8.5 grams 10/08/22 [Rx Last Taken Unknown] prednisone 20 mg tablet 40 mg (2 x 20 mg) PO DAILY #10 TABLETS 10/08/22 [Rx Last Taken Unknown] naproxen 500 mg tablet (Naprosyn) 500 mg PO BID PRN pain #20 tabs 06/10/23 [Rx Last Taken Unknown] Allergy/AdvReac Type Severity Reaction Status Date / Time No Known Allergies Allergy Verified 09/06/23 08:20 Family History Mother Hypertension Diabetes Father Kidney disease Surgical History H/O: Social History household members: children Smoking Status: Current every day smoker tobacco type: cigarettes alcohol intake: never substance use type: does not use caffeine: No EXAM Physical Exam Const Vital Signs: 09/06/23 08:20 09/06/23 08:22 09/06/23 08:23 Temperature 98.1 F 98.1 F Temperature Source Oral Oral Pulse Rate 78 75 Respiratory Rate 18 18 Respiratory Effort Normal Non-Labored Blood Pressure 123/83 H 123/83 H Blood Pressure Mean 96 96 Pulse Ox 100 100 Oxygen Delivery Method Room Air Room Air 09/06/23 09:36 09/06/23 09:36 09/06/23 10:59 Temperature 97.9 F Temperature Source Temporal Pulse Rate 85 77 Respiratory Rate 20 H 15 Respiratory Effort Blood Pressure 131/80 H 102/68 Blood Pressure Mean 97 79 Pulse Ox 100 100 100 Oxygen Delivery Method Room Air Room Air Room Air Heart Score History: Slightly/Non-Suspicious ECG: Normal Age: </= 45 years Risk Factors: No Risk Factors Troponin: </= Normal Limit Score: 0 [facility] Narrative Medical decision making narrative: HISTORY OF PRESENT ILLNESS: 33year-old female presents with chest pain. Patient states she has chest pressure and left arm tingling. This began overnight. States she was moving heavy boxes for her grandmother last night she noted pain in her chest that is worse with movement of the upper extremities. Specifically movement of left arm in abduction. States pain is pressure-like. Is not ripping or tearing. No vomiting. No fever no cough. No family present history of cardiac before 50. She endorses smoking yesterday. Denies cocaine or methamphetamine use. Denies any bleeding diathesis. Patient denies sudden onset of pain, no tearing sensation, no migratory symptoms, no new numbness, weakness or loss of sensation. Patient denies family history or personal history of Marfan syndrome or Juan-Danlos. The patient denies recent surgery in the last 4 weeks or immobilization in the last 3 days, denies previous diagnosis of DVT or PE, hemoptysis, unilateral leg swelling or malignancy with treatment the last 6 months. No estrogen use noted. REVIEW OF SYSTEMS: All other systems reviewed and are negative except as noted in the history of present illness. At least 10 review of systems reviewed and are negative except as noted in history of present illness. PHYSICAL EXAM: Nursing triage notes reviewed, Vital signs reviewed Constitutional: please see [facility] HENT: MMM Eyes: Pupils equal round and reactive to light, Extraocular muscles intact Neck: No stridor, no JVD, full neck ROM Lungs: Clear to auscultation, No wheezing or rales. No increased work of breathing, no conversational dyspnea, no accessory muscle use, no nasal flaring. No respiratory distress noted Heart: Regular rate and rhythm, No murmurs, No rubs and No gallops, 2+ distal pulses (radial, femoral, posterior tibial) in all extremities Abdomen: Soft, there is no tenderness, rigidity, rebound or guarding, no obvious peritoneal signs, no palpable pulsatile abdominal masses, no auscultated abdominal bruit : No CVAT Extremities: No edema Neuro: No focal neurological deficits, cranial nerves II through XII intact, 5/5 strength in all extremities. Intact sensation to light touch in all extremities, 2+ reflexes bilateral patella tendons. Normal gait. No ataxia. Skin: No rash or lesions noted MEDICAL DECISION MAKING: Chief Complaint: Chest pain External records reviewed: Echocardiogram 2021 shows ejection fraction 60% Factors affecting care: Bipolar disorder, anxiety, SHERTIA PVCs Social determinants of health: History mental health disorder History obtained from others: None Consults: none MDM Narrative: Patient was hemodynamically stable, afebrile, nontoxic-appearing. There are no focal cardiopulmonary abnormalities on exam. I considered the following differential diagnosis: ACS, arrhythmia, anemia, electrolyte abnormality, pneumonia, pneumothorax, GI etiology, PE ALL IMAGES (IF OBTAINED) HAVE BEEN PERSONALLY REVIEWED AND INTERPRETED BY MYSELF. EKG with normal sinus rhythm, normal axis, normal intervals, no STEMI no stigmata of pericarditis, no WPW, ARVD or Brugada syndrome noted CBC without leukocytosis, severe anemia, no thrombocytopenia. BMP without significant [place] normalities, noted hypokalemia similar to baseline, no ELYSIA or anion gap High-sensitivity troponin is negative, no evidence of myocardial ischemia x2 I have personally reviewed the patient's chest x-ray. Chest x-ray is unremarkable for pulmonary edema, pneumothorax, pneumonia or focal cardiopulmonary abnormality. PE less likely given low risk Wells score. Aortic dissection is thought to be less likely given no sudden ripping or tearing pain, migratory pain, palpable pulse inequalities, no focal neurologic deficits concurrent with chest pain. Chance of dissection less than 10/1999. Pericarditis less likely given no pathognomonic EKG changes (no diffuse ST elevations, OK depressions). GI etiology (i.e. Boerhaave syndrome) less likely given no chest or neck crepitus, no vomiting or forced retching. I completed a HEART Score to screen for Major Adverse Cardiac Event (MACE) in this patient. The evidence indicates that the patient is very low risk for MACE and this is consistent with my clinical intuition. The risk of further workup or hospitalization for MACE is likely higher than the risk of the patient having a MACE. It is, therefore, in the patient?s best interest not to do additional emergent testing or to be hospitalized for MACE at this time. Shared Decision-Making No hospitalization indicated I have discussed with the patient my clinical impression and the result of the HEART Score to screen for MACE, as well as the risks of further testing and hospitalization. The HEART Score shows that the risk for MACE is less than 1%. Although the risk of MACE has not been completely eliminated, the risks of further testing or hospitalization for MACE likely exceed any potential benefit, and the patient agrees with not pursuing further emergent evaluation or hospitalization for MACE at this time. The patient and/or family, caregivers express understanding. The patient and/or family, caregivers agrees with the plan. Total critical care time today provided was at least 0 minutes. This excludes separately billable procedures. Critical care time (if documented) is secondary to the patient having high probability of clinically significant/life threatening deterioration in the patient's condition which required my urgent intervention. Impression: 1. Chest pain 2. Chest wall pain 3. Hypokalemia 4. Anemia Disposition: Magan Oliveira DO Lab Data Attestation: I reviewed the patient's lab results. Labs: Laboratory Results - last 24 hr 09/06/23 09/06/23 09:15 11:19 WBC 7.3 RBC 4.02 L Hgb 11.7 L Hct 37.1 MCV 92.3 MCH 29.1 MCHC 31.5 L RDW Std Deviation 42.5 RDW Coeff of Jina 12.7 Plt Count 295 MPV 10.8 Immature Gran % (Auto) 0.100 Neut % (Auto) 42.3 L Lymph % (Auto) 39.1 Roberts % (Auto) 7.7 Eos % (Auto) 10.2 H Baso % (Auto) 0.6 Absolute Neuts (auto) 3.1 Absolute Lymphs (auto) 2.84 Nucleated RBC % 0 Sodium 141 Potassium 3.1 L Chloride 107 Carbon Dioxide 27.0 Anion Gap 7 BUN 10 Creatinine 0.66 Estim Creat Clear Calc 99.35 Est GFR (MDRD) Af Amer 130 Est GFR (MDRD) Non-Af 108 BUN/Creatinine Ratio 15.0 Glucose 90 Calcium 8.3 L Troponin I High Sens 24 27 Radiography Diagnostic Testing: Clinical Impression(s) from Imaging Studies Chest X-Ray 09/06/23 09:34 IMPRESSION: No interval change and no acute or active cardiopulmonary disease Electronically Signed: Chepe Clarke MD at 9:55 EST , Discharge Plan Triage Chief Complaint: Chest Pain ED Provider: Magan Oliveira Dx/Rx/DC Orders Prescriptions: No Action prednisone 20 mg tablet 40 mg PO DAILY Qty: 10 0RF albuterol sulfate [ProAir HFA] 90 mcg/actuation HFA aerosol inhaler 1 inh inhalation Q6H PRN (Reason: shortness of breath or wheezing) Qty: 8.5 0RF naproxen [Naprosyn] 500 mg tablet 500 mg PO BID PRN (Reason: pain) Qty: 20 0RF Primary Care Provider: Ray Carnes Referrals: Ray Carnes MD [Primary Care Provider] -
--- NOTE | 2023-09-06 08:45 | EKG12_ITS ---
Test Reason : CP Blood Pressure : / mmHG Vent. Rate : 071 BPM Atrial Rate : 071 BPM P-R Int : 140 ms QRS Dur : 088 ms QT Int : 384 ms P-R-T Axes : 012 034 021 degrees QTc Int : 417 ms Normal sinus rhythm ST elevation, consider early repolarization Borderline ECG Confirmed by DO FAULKNER, BRITTANY ([id number]), deputy editor in chief CHARLES RIVERA ([id number]) on 09/08/2023 12:46:16 PM Referred By: ORESTES Confirmed By:BRITTANY LEI MD
[2023-09-06 09:21] LABS: Absolute Lymphocyte Count 2.84 X10^3/uL (0.83-4.51); Absolute Neutrophil Count 3.1 X10^3/uL (2.0-7.7); Basophil# 0.04 X10^3/uL; Basophil% 0.6 % (0-1); Eosinophil# 0.74 X10^3/uL; Eosinophils% 10.2 % (0-5); Hematocrit 37.1 % (37-47); Hemoglobin 11.7 g/dL (12.0-15.0); Lymphocyte # 2.84 X10^3/ul (0.83-4.51); Lymphocyte % 39.1 % (19-41); Mean Corp Hgb Conc 31.5 g/dL (32-36); Mean Corpuscular Hgb 29.1 pg (27.0-32.0); Mean Corpuscular Volume 92.3 fL (81-99); Mean Platelet Vol. 10.8 fl (6.2-12.0); Monocyte# 0.56 X10^3/uL; Monocyte% 7.7 % (0-10); NRBC Flagged by Analyzer 0 % (0-5); Neutrophil # 3.07 X10^3/uL (2.7-7.7); Neutrophil % 42.3 % (47-70); Platelet Count 295 K/mm3 (150-450); RBC Distribution Width CV 12.7 % (11.6-14.6); RBC Distribution Width SD 42.5 fl (35.1-43.9); Red Blood Count 4.02 M/mm3 (4.2-5.4); White Blood Count 7.3 K/mm3 (4.4-11.0)
--- NOTE | 2023-09-06 09:34 | RAD_ITS ---
STUDY: X-RAY CHEST REASON FOR EXAM: Female, 33 years old. Chest pain. TECHNIQUE: Single frontal view of the chest. COMPARISON: June 10, 2023. FINDINGS: The lungs are clear and expanded. There is no demonstrated pleural abnormality. Normal size heart. Normal mediastinum and coco. Normal visualized pulmonary arteries. Normal visualized aortic arch and descending thoracic aorta. Normal visualized thoracic spine. Normal visualized ribs, clavicles, and shoulders. No abnormality of the visualized soft tissue structures of the upper abdomen. RAD/Chest 1 View (Portable) IMPRESSION: No interval change and no acute or active cardiopulmonary disease Electronically Signed: Chepe Clarke MD at 9:55 EST ,
[2023-09-06 09:36] VITALS: BP 131/80; PULSE 85; RESP 20; TEMP 36.6; O2SAT 100
[2023-09-06 09:36] LABS: Anion Gap 7 (5-15); BUN 10 mg/dL (7-18); Calcium,Total 8.3 mg/dL (8.5-10.1); Chloride 107 mmol/L (98-107); Creatinine, Serum 0.66 mg/dL (0.55-1.02); EST Glomerular Filtration Rate 108 mL/min (>60); Est Glom Filt Rate - Afr Amer 130 mL/min (>60); Estimated Creatinine Clearance 99.35 ml/min; Glucose 90 mg/dL (74-106); Potassium 3.1 mmol/L (3.5-5.1); Sodium Level 141 mmol/L (136-145); Troponin-I HS (w/2H Reflex) 24 pg/mL (3.0-54.0)
[2023-09-06] MEDS: Potassium Chloride Oral Tablet 20 MEQ 40 MEQ PO (09:56)
[2023-09-06 10:59] VITALS: BP 102/68; PULSE 77; RESP 15; O2SAT 100
[2023-09-06 11:15] LABS: Reflex Troponin-HS? (from REC) Y
[2023-09-06 11:41] LABS: Troponin-I HS 27 pg/mL (3.0-54.0)
[2023-09-06 12:15] VITALS: BP 94/70; PULSE 74; PULSE 82; RESP 13; RESP 14; O2SAT 99
== END 2023-09-06 12:25 | disposition home or self-care (01) ==
PROVIDERS: Emergency Provider Emergency Medicine; PCP Family Medicine; Visit Provider Emergency Medicine
DX: R07.89 Other chest pain (principal); E87.6 Hypokalemia; D64.9 Anemia, unspecified; G47.33 Obstructive sleep apnea (adult) (pediatric); F17.210 Nicotine dependence, cigarettes, uncomplicated
CPT/HCPCS: 71045; 80048; 84484; 85025; 93005; 99285; A4216

== ENCOUNTER 2023-11-18 09:21 | Emergency (ER) | payer MEDICAID, SELFPAY ==
[2023-11-18 09:22] VITALS: BP 132/87; PULSE 98; RESP 14; TEMP 36.6; O2SAT 100; BMI 25.9
--- NOTE | 2023-11-18 10:17 | EX.ED.GENINJ ---
HPI History of Present Illness Chief Complaint: Chest Other Informant: patient Narrative Narrative: Patient presents with left side chest/rib pain after she fell on Wednesday. She was helping a friend by walking the dog. The dog pulled and the patient tripped fell and landed on the left side of her chest. Never hit her head no blood thinners. She actually denies being short of breath at all. She states it just hurts when she moves. Breaths do not even really bother him much. She denies any other injury. She is eating and drinking well. No pain in the abdomen. No hematuria at any time noted. [facility] Medical History Acute on chronic anemia Anemia Anxiety Asthma Bipolar disorder CPAP (continuous positive airway pressure) dependence Depression Former smoker Heart disease History of prior with IUGR Migraines SHERITA (obstructive sleep apnea) Premature ventricular contraction Schizophrenia Sleep apnea Sterilization Syncope Home Medications albuterol sulfate 90 mcg/actuation aerosol inhaler (ProAir HFA) 1 inh inhalation Q6H PRN shortness of breath or wheezing #8.5 grams 10/08/22 [Rx Last Taken Unknown] prednisone 20 mg tablet 40 mg (2 x 20 mg) PO DAILY #10 TABLETS 10/08/22 [Rx Last Taken Unknown] naproxen 500 mg tablet (Naprosyn) 500 mg PO BID PRN pain #20 tabs 06/10/23 [Rx Last Taken Unknown] Allergy/AdvReac Type Severity Reaction Status Date / Time No Known Allergies Allergy Verified 11/18/23 09:23 Family History Mother Hypertension Diabetes Father Kidney disease Surgical History H/O: Social History household members: children Smoking Status: Current every day smoker tobacco type: cigarettes alcohol intake: never substance use type: does not use caffeine: No ROS ROS ED ROS Narrative A complete review of systems was performed and is negative except as documented in the history of present illness. Some specific details below. Constitutional: No recent fevers or chills. EYE: No d visual changes. ENT: No difficulty swallowing. No swelling. No pain. No reflux symptoms. CV: See history of present illness. Respiratory: See history of present illness. She is not actually short of breath and she is not coughing. GI: No abdominal pain. No nausea vomiting diarrhea. No blood in stool. : No frequency dysuria or hematuria. Musculoskeletal: No injury to any other areas with her fall. Skin: No rash. Nondiaphoretic. Neuro: No weakness or numbness. Endocrine: No polyuria or polydipsia. EXAM Physical Exam Narrative Exam Narrative: CONSTITUTIONAL: Patient is nontoxic in appearance. The patient looks comfortable. Work of breathing looks normal. HEENT: No notable trauma. Mucous membranes moist. EYES: No conjunctival injection. NECK:No JVD. No stridor. CARDIOVASCULAR: Regular rate. Regular rhythm. No notable murmur. No JVD. Tones are not muffled. Peripheral pulses are equal. RESPIRATORY: No respiratory distress. Breathing is unlabored. No wheezes. No rhonchi. No rales. No pain with a deep breath. She does have some tenderness in the mid anterior axillary line on the left. But no subcu air or crepitance. GASTROINTESTINAL: Not distended. Bowel sounds are normal. No tenderness. No guarding. No rebound. No palpable mass. No bruit is heard. Pain is not in her abdomen. This is clearly up in her ribs and not in her upper abdomen. She ranges states that it there GENITOURINARY: No tenderness over the bladder. No CVA tenderness. MUSCULOSKELETAL: Atraumatic. No peripheral edema. No tenderness. NEUROLOGICAL: Patient is alert and appropriate. No focal deficit noted. SKIN: No noted rashes. No diaphoresis. PSYCHIATRIC: Patient is calm. Mood is appropriate. Const Vital Signs: 11/18/23 09:22 Temperature 97.8 F Temperature Source Temporal Pulse Rate 98 Respiratory Rate 14 Blood Pressure 132/87 H Blood Pressure Mean 102 Pulse Ox 100 Oxygen Delivery Method Room Air MDM MDM MDM Narrative Medical decision making narrative: My independent interpretation of the patient's three-view x-rays of her chest and left ribs shows no sign of pneumothorax pulmonary contusion or noted fracture. Final reading is similar. Patient can use Tylenol Motrin Aleve etc. for discomfort. Ice and rest. Return if she has fevers trouble breathing or any other concerns. Radiography Diagnostic Testing: Clinical Impression(s) from Imaging Studies Ribs w/Chest X-Ray 11/18/23 10:25 IMPRESSION: RIBS: Normal x-ray examination of the ribs. CHEST: Normal x-ray examination of the chest. Electronically Signed: Ben Muñoz MD at 10:38 EST , Discharge Plan Triage Chief Complaint: Chest Other ED Provider: Andrea Villatoro Dx/Rx/DC Orders Clinical Impression: Fall from slip, trip, or stumble, Contusion of left chest wall Instructions: ED Chest Wall Contusion Prescriptions: No Action prednisone 20 mg tablet 40 mg PO DAILY Qty: 10 0RF albuterol sulfate [ProAir HFA] 90 mcg/actuation HFA aerosol inhaler 1 inh inhalation Q6H PRN (Reason: shortness of breath or wheezing) Qty: 8.5 0RF naproxen [Naprosyn] 500 mg tablet 500 mg PO BID PRN (Reason: pain) Qty: 20 0RF Primary Care Provider: Ray Carnes Referrals: Ray Carnes MD [Primary Care Provider] - 3-5 Days if not improving Activity Restrictions/Additional Instructions: May use Tylenol, Motrin, or Aleve for discomfort. Disposition Disposition: Home, Self Care
--- NOTE | 2023-11-18 10:25 | RAD_ITS ---
STUDY: X-RAY - UNILATERAL RIBS ( LEFT ) WITH CHEST REASON FOR EXAM: Female, 33 years old. History of left rib pain following a fall. TECHNIQUE - RIBS: 2 view(s) of the ribs. TECHNIQUE - CHEST: Single PA view of the chest. COMPARISON: None. FINDINGS - RIBS: Normal visualized ribs without a demonstrated fracture. FINDINGS - CHEST: The lungs are clear and expanded. There is no demonstrated pleural abnormality. Normal size heart. Normal mediastinum and coco. Normal visualized pulmonary arteries. Normal visualized aortic arch and descending thoracic aorta. Normal visualized thoracic spine. Normal visualized ribs, clavicles, and shoulders. There is no demonstrated abnormality of the visualized soft tissue structures of the upper abdomen. RAD/Ribs Uni Min 3V w/PA Chest IMPRESSION: RIBS: Normal x-ray examination of the ribs. CHEST: Normal x-ray examination of the chest. Electronically Signed: Ben Muñoz MD at 10:38 EST ,
[2023-11-18 11:31] VITALS: BP 148/66; PULSE 90; RESP 18; O2SAT 97
== END 2023-11-18 11:36 | disposition home or self-care (01) ==
PROVIDERS: Emergency Provider Emergency Medicine; PCP Family Medicine; Visit Provider Emergency Medicine
DX: S20.212A Contusion of left front wall of thorax, initial encounter (principal); W01.0XXA Fall on same level from slipping, tripping and stumbling without subsequent striking against object, initial encounter; Y93.K1 Activity, walking an animal; Y99.8 Other external cause status; F17.210 Nicotine dependence, cigarettes, uncomplicated
CPT/HCPCS: 71101; 99282

== ENCOUNTER 2023-11-23 08:46 | Emergency (ER) | payer MEDICAID, SELFPAY ==
[2023-11-23 08:47] VITALS: BP 119/82; PULSE 122; RESP 18; TEMP 36.2; O2SAT 99; BMI 26.7
--- NOTE | 2023-11-23 08:59 | EX.ED.DYSGE1 ---
HPI History of Present Illness Chief Complaint: Weakness Detail of Chief Complaint: Not feeling well since yesterday Informant: patient Narrative Narrative: Patient presents to the emergency department with complaint of not feeling well since yesterday. She developed a cough. She complains of headache and bodyaches. She had temperature up to 102 yesterday. She denies any sick contacts. Patient states that she had 1 episode of diarrhea today. She generally feels weak. Patient denies dysuria or urgency or frequency. She denies sore throat. She has had no nausea or vomiting. [facility] Medical History Acute on chronic anemia Anemia Anxiety Asthma Bipolar disorder CPAP (continuous positive airway pressure) dependence Depression Former smoker Heart disease History of prior with IUGR Migraines SHERITA (obstructive sleep apnea) Premature ventricular contraction Schizophrenia Sleep apnea Sterilization Syncope Home Medications albuterol sulfate 90 mcg/actuation aerosol inhaler (ProAir HFA) 1 inh inhalation Q6H PRN shortness of breath or wheezing #8.5 grams 10/08/22 [Rx Last Taken Unknown] prednisone 20 mg tablet 40 mg (2 x 20 mg) PO DAILY #10 TABLETS 10/08/22 [Rx Last Taken Unknown] naproxen 500 mg tablet (Naprosyn) 500 mg PO BID PRN pain #20 tabs 06/10/23 [Rx Last Taken Unknown] oseltamivir 75 mg capsule (Tamiflu) 75 mg PO BID 5 days #10 caps 11/23/23 [Rx Last Taken Unknown] Allergy/AdvReac Type Severity Reaction Status Date / Time No Known Allergies Allergy Verified 11/23/23 09:16 Family History Mother Hypertension Diabetes Father Kidney disease Surgical History H/O: Social History household members: children Smoking Status: Current every day smoker tobacco type: cigarettes alcohol intake: never substance use type: does not use caffeine: No ROS ROS ED Review of Systems ROS Unobtainable: other Constitutional Constitutional ED: Reports lethargy; Denies chills, fever(s), sweats or weight loss Eyes Eyes: Denies blurry vision, change in vision or diplopia ENT ENT ED: Denies rhinorrhea or sore throat Cardiovascular Cardiovascular: Denies chest pain, orthopnea or racing heartbeat Respiratory/Chest Respiratory/Chest: Reports cough; Denies dyspnea, dyspnea on exertion, orthopnea or sputum Gastrointestinal Gastrointestinal: Reports diarrhea; Denies abdominal pain, nausea or vomiting Genitourinary Genitourinary ED: Denies dysuria, hematuria or urinary frequency Musculoskeletal Musculoskeletal: Reports myalgias; Denies arthralgias, back pain or neck pain Integumentary Denies abscess, Abrasions or rash Neurologic Neurologic: Reports weakness; Denies headache(s) Psychiatric Psychiatric: Denies anxiety, depression or suicidal thoughts Endocrine Endocrinology: Denies polydipsia, polyphagia or polyuria Hematologic/Lymphatic Hematologic/Lymphatic: Denies easy bleeding, easy bruising or lymphadenopathy Allergic/Immunologic Allergic/Immunologic ED: Denies mouth swelling, tongue swelling or urticaria EXAM Physical Exam Const Vital Signs: 11/23/23 08:47 Temperature 97.1 F L Temperature Source Temporal Pulse Rate 122 H Respiratory Rate 18 Blood Pressure 119/82 H Blood Pressure Mean 94 Pulse Ox 99 Oxygen Delivery Method Room Air Positive well nourished and well developed General Appearance ED: well developed and NAD HEENT Reports TM's clear and moist mucous membranes normocephalic and atraumatic; Negative for trauma or tenderness Tympanic Membrane ED: Yes TM's clear Eyes PERRL and EOMs intact bilaterally General Eye ED: Negative for pale conjunctiva or scleral icterus Neck no lymphadenopathy, supple and no JVD General: Negative for tenderness Chest Wall inspection of chest normal and palpation of chest normal Chest: Negative for tenderness Resp normal respiratory effort and clear to auscultation bilaterally Effort and Inspection: Negative for respiratory distress or pain with movement Auscultation: Negative for rhonchi, wheezes or diminished lung sounds Cardio regular rhythm, S1 normal heart sound, S2 normal heart sound and no murmurs; Negative for regular rate Rate: tachycardic Peripheral Pulses: pulses 2+ throughout GI normal to inspection, nondistended, normoactive bowel sounds, soft to palpation, non-tender, non-distended and no masses Back/Spine no CVA tenderness and no thoracic nor lumbar tenderness Extremity normal to inspection General Extremety ED: Negative for edema General Extremity: Negative for edema Neuro oriented x3, CN's II-XII intact bilaterally, no sensory deficits noted and gait normal Sensorium / Orientation: awake, alert, oriented to person, oriented to place and oriented to time Motor Exam: strength 5/5 throughout and strength abnormal Psych mental status grossly normal Skin no rashes or lesions noted and no wounds MDM MDM MDM Narrative Medical decision making narrative: Patient presents with multiple complaints of URI. Suspect likely viral etiology. Clinically she looks well but did present slightly tachycardic. She will be given a dose of Toradol to help with her headache and body aches. Will obtain COVID and flu and RSV testing. I do not feel imaging is indicated. Patient tested for COVID, flu, and RSV and was positive for influenza A. Discussed treatment with Tamiflu and she would like to proceed with that. Patient felt improved after Toradol. Advised to use ibuprofen or Tylenol for discomfort. Lab Data Attestation: I reviewed the patient's lab results. Discharge Plan Triage Chief Complaint: Weakness ED Provider: Mehul Mistry Dx/Rx/DC Orders Clinical Impression: Influenza A Instructions: ED Influenza (Adult) Prescriptions: New oseltamivir [Tamiflu] 75 mg capsule 75 mg PO BID 5 Days Qty: 10 0RF No Action prednisone 20 mg tablet 40 mg PO DAILY Qty: 10 0RF albuterol sulfate [ProAir HFA] 90 mcg/actuation HFA aerosol inhaler 1 inh inhalation Q6H PRN (Reason: shortness of breath or wheezing) Qty: 8.5 0RF naproxen [Naprosyn] 500 mg tablet 500 mg PO BID PRN (Reason: pain) Qty: 20 0RF Primary Care Provider: Ray Carnes Referrals: Ray Carnes MD [Primary Care Provider] - 5-7 Days Disposition Disposition: Home, Self Care
[2023-11-23] MEDS: Ketorolac 60 MG/2 ML Vial IM (09:11)
[2023-11-23 10:30] VITALS: BP 120/68; PULSE 80; RESP 16; O2SAT 99
== END 2023-11-23 10:31 | disposition home or self-care (01) ==
PROVIDERS: Emergency Provider Emergency Medicine; PCP Family Medicine; Visit Provider Emergency Medicine
DX: J10.1 Influenza due to other identified influenza virus with other respiratory manifestations (principal); F17.210 Nicotine dependence, cigarettes, uncomplicated
CPT/HCPCS: 87631; 96372; 99282

== ENCOUNTER 2024-01-19 19:39 | Emergency (ER) | payer MEDICAID, SELFPAY ==
[2024-01-19 19:41] VITALS: BP 137/95; PULSE 117; RESP 16; TEMP 36.6; O2SAT 100; BMI 25.1
--- NOTE | 2024-01-19 20:51 | EX.ED.DYSGE1 ---
HPI History of Present Illness Chief Complaint: General Illness Informant: patient Onset/Context/Timing Onset: Days Context: Gradual Onset Current Severity: Mild Maximum Severity: Mild Narrative Narrative: 34-year-old female history of bipolar and schizophrenia. Prior anemia. States she just feels thirsty. Denies vomiting or diarrhea. No dysuria. No fever. No abdominal pain. Patient has no history of diabetes. Mom does have a history of diabetes. She denies any significant weight change. Prior similar symptoms: No Recent Illness/Hospitalization: No PFSH PFSH Medical History Acute on chronic anemia Anemia Anxiety Asthma Bipolar disorder CPAP (continuous positive airway pressure) dependence Depression Former smoker Heart disease History of prior with IUGR Migraines SHERITA (obstructive sleep apnea) Premature ventricular contraction Schizophrenia Sleep apnea Sterilization Syncope Home Medications albuterol sulfate 90 mcg/actuation aerosol inhaler (ProAir HFA) 1 inh inhalation Q6H PRN shortness of breath or wheezing #8.5 grams 10/08/22 [Rx Last Taken Unknown] prednisone 20 mg tablet 40 mg (2 x 20 mg) PO DAILY #10 TABLETS 10/08/22 [Rx Last Taken Unknown] naproxen 500 mg tablet (Naprosyn) 500 mg PO BID PRN pain #20 tabs 06/10/23 [Rx Last Taken Unknown] oseltamivir 75 mg capsule (Tamiflu) 75 mg PO BID 5 days #10 caps 11/23/23 [Rx Last Taken Unknown] Allergy/AdvReac Type Severity Reaction Status Date / Time No Known Allergies Allergy Verified 01/19/24 19:42 Family History Mother Hypertension Diabetes Father Kidney disease Surgical History H/O: Social History household members: children Smoking Status: Current every day smoker tobacco type: cigarettes alcohol intake: never substance use type: does not use caffeine: No ROS ROS ED ROS Narrative Denies nausea, vomiting or diarrhea. Denies abdominal pain or fever. Review of Systems ROS Unobtainable: Denies due to encephalopathy Constitutional Constitutional ED: Denies chills or fever(s) Eyes Eyes: Denies blurry vision ENT ENT ED: Denies ear pain Cardiovascular Cardiovascular: Denies chest pain Respiratory/Chest Respiratory/Chest: Denies cough or dyspnea Gastrointestinal Gastrointestinal: Denies abdominal pain Genitourinary Genitourinary ED: Denies dysuria or hematuria Musculoskeletal Musculoskeletal: Denies arthralgias or back pain Integumentary Denies abscess or Abrasions Neurologic Neurologic: Denies headache(s) Psychiatric Psychiatric: Denies anxiety or depression Endocrine Endocrinology: Denies cold intolerance Hematologic/Lymphatic Hematologic/Lymphatic: Reports none Allergic/Immunologic Allergic/Immunologic ED: Denies mouth swelling, tongue swelling or urticaria EXAM Physical Exam Narrative Exam Narrative: 34-year-old female no acute distress vital signs are stable. Pulse ox 100% on room air. H EENT exam pupils round reactive light. Mild dry mucous members. Neck nontender no lymphadenopathy. Lungs clear to auscultation bilaterally. Heart tachycardic rate of 110 no murmur. Chest wall nontender. Abdomen soft nontender. Nondistended. Normal bowel sounds no peritoneal signs. Moving all 4 extremities. Calves are nontender without edema or cords. Neurologically she is awake alert with no focal motor deficits. Neck nontender no lymphadenopathy. Const Vital Signs: 01/19/24 19:41 01/19/24 19:39 01/19/24 21:39 Temperature 97.9 F Temperature Source Temporal Pulse Rate 117 H 54 L Respiratory Rate 16 16 Respiratory Pattern Normal Blood Pressure 137/95 H 127/88 H Blood Pressure Mean 109 101 Pulse Ox 100 95 Oxygen Delivery Method Room Air Room Air Positive well nourished and well developed; Negative for obese, cachectic, contractures or unkempt General Appearance ED: well developed and NAD; Negative for unkempt, cachectic, contractures, cyanotic, diaphoretic or pallor Nutritional Appearance: Negative for cachectic or obese HEENT Reports dry mucous membranes; Denies moist mucous membranes Negative for trauma or tenderness Mouth ED: Yes dry mucous membranes Mouth: dry mucous membranes Eyes PERRL and EOMs intact bilaterally General Eye ED: Negative for pale conjunctiva, scleral icterus or other Neck no lymphadenopathy, supple and no JVD General: Negative for tenderness Lymph Lymphatic: Negative for other Chest Wall inspection of chest normal and palpation of chest normal Chest: Negative for other Resp normal respiratory effort and clear to auscultation bilaterally Effort and Inspection: Negative for retractions Auscultation: Negative for rales, rhonchi or wheezes Cardio regular rhythm, S1 normal heart sound, S2 normal heart sound and no murmurs; Negative for regular rate Rate: tachycardic Rhythm: Negative for abnormal rhythm GI normal to inspection, nondistended, normoactive bowel sounds, non-tender, non-distended and no masses Inspection: Negative for abdominal distention Auscultation: normoactive bowel sounds Palpation: soft; Negative for tender, guarding or rebound tenderness present Back/Spine no CVA tenderness General Back: Negative for CVA tenderness Cervical Spine: Negative for cervical spine tenderness Thoracic Spine / Upper Back: Negative for thoracic spinal tenderness or paraspinal muscle tenderness Lumbar Spine / Lower Back: Negative for lumbar spinal tenderness Extremity normal to inspection General Extremety ED: Negative for edema or tenderness General Extremity: Negative for edema Neuro oriented x3 and CN's II-XII intact bilaterally Sensorium / Orientation: alert; Negative for orientation impaired, lethargic or stuporous Motor Exam: strength 5/5 throughout Psych mental status grossly normal Appearance: Negative for unkempt Attitude: No agitated Mood & Affect: Negative for depressed, anxious or tearful Skin no rashes or lesions noted and no wounds General Skin Exam: Negative for jaundice or pallor Lesions: No lesion noted Rashes: No rashes noted Trauma: Negative for abrasion Wounds: Negative for wounds noted MDM MDM MDM Narrative Medical decision making narrative: 34-year-old female states she feels dehydrated. Liter normal saline. Screening labs. Exam benign. Patient received a liter normal saline. On repeat exam 11 7 PM she is doing well. Vital signs are stable. She will be discharged home with patient follow-up as needed. Lab Data Attestation: I reviewed the patient's lab results. Lab results narrative: CBC normal. White count 9. H&H 13 and 39. Platelets 290. Electrolytes show potassium 3.3. Gap 5. BUN 3 and creatinine 0.6. Glucose 102. Labs: Laboratory Results - last 24 hr 01/19/24 01/19/24 20:58 21:01 WBC 9.8 RBC 4.42 Hgb 13.0 Hct 39.6 MCV 89.6 MCH 29.4 MCHC 32.8 RDW Std Deviation 41.6 RDW Coeff of Jina 12.8 Plt Count 290 MPV 10.7 Immature Gran % (Auto) 0.300 Neut % (Auto) 63.6 Lymph % (Auto) 26.7 [place] % (Auto) 6.3 Eos % (Auto) 2.8 Baso % (Auto) 0.3 Absolute Neuts (auto) 6.2 Absolute Lymphs (auto) 2.61 Nucleated RBC % 0 Sodium 140 Potassium 3.3 L Chloride 107 Carbon Dioxide 28.0 Anion Gap 5 BUN 3 L Creatinine 0.62 Estim Creat Clear Calc 109.91 Est GFR (MDRD) Af Amer 142 Est GFR (MDRD) Non-Af 117 BUN/Creatinine Ratio 4.9 L Glucose 102 Calcium 8.9 POC Glucose 67 L Discharge Plan Triage Chief Complaint: General Illness ED Provider: Marcos Han Dx/Rx/DC Orders Clinical Impression: History of bipolar disorder, History of schizophrenia, Acute hypokalemia Instructions: ED Hypokalemia Prescriptions: No Action prednisone 20 mg tablet 40 mg PO DAILY Qty: 10 0RF albuterol sulfate [ProAir HFA] 90 mcg/actuation HFA aerosol inhaler 1 inh inhalation Q6H PRN (Reason: shortness of breath or wheezing) Qty: 8.5 0RF naproxen [Naprosyn] 500 mg tablet 500 mg PO BID PRN (Reason: pain) Qty: 20 0RF oseltamivir [Tamiflu] 75 mg capsule 75 mg PO BID 5 Days Qty: 10 0RF Primary Care Provider: Ray Carnes Referrals: Ray Carnes MD [Primary Care Provider] - As Needed Activity Restrictions/Additional Instructions: Your labs look good tonight. Mildly low potassium. That should improve with just a regular diet. Plenty of fruits and vegetables. Follow-up with your doctor as needed. Disposition Disposition: Home, Self Care
[2024-01-19] MEDS: 0.9% Normal Saline (1000mL) 1,000 ML 1000 ML IV (21:10)
[2024-01-19 21:11] LABS: Absolute Lymphocyte Count 2.61 X10^3/uL (0.83-4.51); Absolute Neutrophil Count 6.2 X10^3/uL (2.0-7.7); Basophil# 0.03 X10^3/uL; Basophil% 0.3 % (0-1); Eosinophil# 0.27 X10^3/uL; Eosinophils% 2.8 % (0-5); Hematocrit 39.6 % (37-47); Lymphocyte # 2.61 X10^3/ul (0.83-4.51); Lymphocyte % 26.7 % (19-41); Mean Corp Hgb Conc 32.8 g/dL (32-36); Mean Corpuscular Hgb 29.4 pg (27.0-32.0); Mean Corpuscular Volume 89.6 fL (81-99); Mean Platelet Vol. 10.7 fl (6.2-12.0); Monocyte# 0.62 X10^3/uL; Monocyte% 6.3 % (0-10); NRBC Flagged by Analyzer 0 % (0-5); Neutrophil # 6.23 X10^3/uL (2.7-7.7); Neutrophil % 63.6 % (47-70); Platelet Count 290 K/mm3 (150-450); RBC Distribution Width CV 12.8 % (11.6-14.6); RBC Distribution Width SD 41.6 fl (35.1-43.9); Red Blood Count 4.42 M/mm3 (4.2-5.4); White Blood Count 9.8 K/mm3 (4.4-11.0)
[2024-01-19 21:16] LABS: Bedside Glucose 67 mg/dL (74-106)
[2024-01-19 21:25] LABS: Anion Gap 5 (5-15); BUN 3 mg/dL (7-18); BUN/Creat Ratio 4.9 RATIO (10-20); Calcium,Total 8.9 mg/dL (8.5-10.1); Chloride 107 mmol/L (98-107); Creatinine, Serum 0.62 mg/dL (0.55-1.02); EST Glomerular Filtration Rate 117 mL/min (>60); Est Glom Filt Rate - Afr Amer 142 mL/min (>60); Estimated Creatinine Clearance 109.91 ml/min; Glucose 102 mg/dL (74-106); Potassium 3.3 mmol/L (3.5-5.1); Sodium Level 140 mmol/L (136-145)
[2024-01-19 21:39] VITALS: BP 127/88; PULSE 54; RESP 16; O2SAT 95
[2024-01-19 23:00] VITALS: BP 121/81; PULSE 105; RESP 18; TEMP 36.8; O2SAT 99
[2024-01-19 23:26] VITALS: BP 121/81; PULSE 105; RESP 18; TEMP 36.8; O2SAT 99
== END 2024-01-19 23:27 | disposition home or self-care (01) ==
PROVIDERS: Emergency Provider Emergency Medicine; PCP Family Medicine; Visit Provider Emergency Medicine
DX: E86.0 Dehydration (principal); F20.9 Schizophrenia, unspecified; F31.9 Bipolar disorder, unspecified; E87.6 Hypokalemia; F17.210 Nicotine dependence, cigarettes, uncomplicated
CPT/HCPCS: 80048; 82962; 85025; 99283

== ENCOUNTER 2024-06-14 13:58 | Emergency (ER) | payer MEDICAID, SELFPAY ==
[2024-06-14 13:58] VITALS: BP 149/101; PULSE 82; RESP 16; TEMP 35.9; O2SAT 100; BMI 24.5
--- NOTE | 2024-06-14 14:09 | EDS_ITS ---
HPI History of Present Illness Chief Complaint: Dental Informant: patient Narrative Narrative: 34-year-old female presenting to the emergency room with a chief complaint of dental pain. Patient states her about on the left first molar began hurting her yesterday. She states she spit something out of her mouth today unsure what that was. She denies any fevers. She states she has a heart problem and and states that is that her heart beats too slow. No reported fevers. She states that she does not have a dentist and needs to get a new one. The tooth in question that is bothering her has had prior cavity filled. [facility] Medical History Acute on chronic anemia Sterilization History of prior with IUGR Heart disease Anemia Premature ventricular contraction Syncope SHERITA (obstructive sleep apnea) Bipolar disorder Schizophrenia Depression Anxiety Former smoker CPAP (continuous positive airway pressure) dependence Sleep apnea Asthma Migraines Home Medications ?Medication ?Instructions ?Recorded ?Last Taken ?Type albuterol sulfate 90 mcg/actuation 1 inh inhalation Q6H PRN shortness 10/08/22 Unknown Rx aerosol inhaler (ProAir HFA) of breath or wheezing #8.5 grams prednisone 20 mg tablet 40 mg (2 x 20 mg) PO DAILY #10 10/08/22 Unknown Rx TABLETS naproxen 500 mg tablet (Naprosyn) 500 mg PO BID PRN pain #20 tabs 06/10/23 Unknown Rx oseltamivir 75 mg capsule (Tamiflu) 75 mg PO BID 5 days #10 caps 11/23/23 Unknown Rx Allergy/AdvReac Type Severity Reaction Status Date / Time No Known Allergies Allergy Verified 06/14/24 14:00 Family History Mother Hypertension Diabetes Father Kidney disease Surgical History H/O: Social History household members: children Smoking Status: Current every day smoker tobacco type: cigarettes alcohol intake: never substance use type: does not use caffeine: No ROS ROS ED Constitutional Constitutional ED: Denies chills, fever(s) or weight loss Eyes Eyes: Denies change in vision or diplopia ENT ENT ED: Reports other Details: Dental pain ; Denies ear pain, rhinorrhea or sore throat Cardiovascular Cardiovascular: Denies chest pain, orthopnea, palpitations or racing heartbeat Respiratory/Chest Respiratory/Chest: Denies cough, dyspnea or orthopnea Gastrointestinal Gastrointestinal: Denies abdominal pain, diarrhea, nausea or vomiting Genitourinary Genitourinary ED: Denies dysuria, hematuria or urinary frequency Musculoskeletal Musculoskeletal: Denies arthralgias or myalgias Integumentary Denies abscess or rash Neurologic Neurologic: Denies headache(s) or weakness Psychiatric Psychiatric: Denies anxiety, depression, suicidal ideation or suicidal thoughts Endocrine Endocrinology: Denies polydipsia, polyphagia or polyuria Allergic/Immunologic Allergic/Immunologic ED: Denies mouth swelling, tongue swelling or urticaria EXAM Physical Exam Const Vital Signs: 06/14/24 13:58 Temperature 96.6 F L Temperature Source Temporal Pulse Rate 82 Respiratory Rate 16 Blood Pressure 149/101 H Blood Pressure Mean 117 Pulse Ox 100 Oxygen Delivery Method Room Air Positive well nourished and well developed General Appearance ED: well developed HEENT Reports normocephalic, head/scalp atraumatic and moist mucous membranes HEENT Narrative: Left lower first molar demonstrates prior cavity filling. There is an irregular edge to the posterior lateral wall of the tooth possibly representing a recent fracture. The tooth is tender to palpation. There is no gum swelling. There is no evidence of gingivitis. Floor the mouth there is no jaw swelling or erythema. Eyes PERRL and EOMs intact bilaterally Neck no lymphadenopathy, supple and no JVD Resp normal respiratory effort and clear to auscultation bilaterally Cardio regular rate, regular rhythm and no murmurs GI normal to inspection, nondistended, normoactive bowel sounds and non-tender Palpation: soft Back/Spine no CVA tenderness and normal ROM Extremity normal to inspection General Extremety ED: Negative for edema General Extremity: Negative for edema Neuro oriented x3 and CN's II-XII intact bilaterally Sensorium / Orientation: alert Motor Exam: strength 5/5 throughout Psych mental status grossly normal Mood & Affect: Negative for depressed or tearful Skin no rashes or lesions noted and no wounds MDM MDM MDM Narrative Medical decision making narrative: Differential diagnosis includes but not limited to gingivitis ANUG dental abscess periapical abscess dental cavity dental fracture Gopal's angina We can begin the patient on some anti-inflammatories and a short course of penicillin. She needs to establish with a dentist to soon as possible. History & Record Review Discussion w/independent historian: Patient Discharge Plan Triage Chief Complaint: Dental ED Provider: Tomas Duron Dx/Rx/DC Orders Prescriptions: No Action prednisone 20 mg tablet 40 mg PO DAILY Qty: 10 0RF albuterol sulfate [ProAir HFA] 90 mcg/actuation HFA aerosol inhaler 1 inh inhalation Q6H PRN (Reason: shortness of breath or wheezing) Qty: 8.5 0RF naproxen [Naprosyn] 500 mg tablet 500 mg PO BID PRN (Reason: pain) Qty: 20 0RF oseltamivir [Tamiflu] 75 mg capsule 75 mg PO BID 5 Days Qty: 10 0RF Primary Care Provider: Ray Carnes Referrals: Ray Carnes MD [Primary Care Provider] - Print Language: [place]
== END 2024-06-14 14:26 | disposition home or self-care (01) ==
LOC: ED 14:15
PROVIDERS: Emergency Provider Emergency Medicine; PCP Family Medicine; Visit Provider Emergency Medicine
DX: K08.89 Other specified disorders of teeth and supporting structures (principal); F17.210 Nicotine dependence, cigarettes, uncomplicated
CPT/HCPCS: 99282

== ENCOUNTER 2024-06-29 10:39 | Emergency (ER) | payer MEDICAID, SELFPAY ==
[2024-06-29 10:39] VITALS: BP 100/67; PULSE 100; RESP 18; TEMP 37.2; O2SAT 100; BMI 25.0
--- NOTE | 2024-06-29 10:59 | EX.ED.DYSGE1 ---
HPI History of Present Illness Chief Complaint: Rash Narrative Narrative: Chief complaint and HPI: Rash. 34-year-old female with history of asthma, depression presents for evaluation of rash. Patient states that she was recently started on penicillin for a dental infection. She states she went to the dentist yesterday and had her tooth fixed. She states yesterday was the last day of her penicillin. She states yesterday she developed a rash on her arms, stomach, back. She describes it as pruritic. She states she also had some mild swelling around her lips. She denies any fever, chills, shortness of breath, chest pain, nausea, vomiting, lightheadedness, diarrhea, abdominal pain. No difficulty phonating or swallowing. Tolerating secretions. Patient states I think it is from penicillin as I have never had this before. She states that she has had this rash before with allergic reactions. She denies any new foods, body products, healthcare products otherwise Review of systems: See HPI Medications: As listed on the chart Allergies: As listed on the chart PFSH: Per chart Vital signs: As listed on the chart. Reviewed. Physical exam: Gen: A&O x3, NAD Head: Normocephalic, atraumatic Eyes: No sclera icterus, conjunctiva clear, PERRL, EOMI, no periorbital swelling ENT: Moist mucous membranes, tolerating secretions, no angioedema on my exam, posterior oropharynx unremarkable without swelling, uvula midline, no submandibular or tongue swelling, no dental abscess Neck: Trachea midline, No JVD, Full ROM, no swelling CV: RRR, no murmurs, no peripheral edema Resp: Lungs CTA BL, no w/r/c, no stridor GI: Abd soft, non-distended, non-tender, no r/r/g Musc: Full ROM, no deformity Skin: Warm, dry, patient is -[place] and therefore it is difficult to appreciate a rash although she is itching her arms frequently while in the room Neuro: Alert, oriented, grossly intact, sensation intact Psych: Cooperative, appropriate mood and affect [facility] Medical History Acute on chronic anemia Sterilization History of prior with IUGR Heart disease Anemia Premature ventricular contraction Syncope SHERITA (obstructive sleep apnea) Bipolar disorder Schizophrenia Depression Anxiety Former smoker CPAP (continuous positive airway pressure) dependence Sleep apnea Asthma Migraines Home Medications ?Medication ?Instructions ?Recorded ?Last Taken ?Type albuterol sulfate 90 mcg/actuation 1 inh inhalation Q6H PRN shortness 10/08/22 Unknown Rx aerosol inhaler (ProAir HFA) of breath or wheezing #8.5 grams prednisone 20 mg tablet 40 mg (2 x 20 mg) PO DAILY #10 10/08/22 Unknown Rx TABLETS naproxen 500 mg tablet (Naprosyn) 500 mg PO BID PRN pain #20 tabs 06/10/23 Unknown Rx oseltamivir 75 mg capsule (Tamiflu) 75 mg PO BID 5 days #10 caps 11/23/23 Unknown Rx naproxen 500 mg tablet (Naprosyn) 500 mg PO BID PRN pain #20 tabs 06/14/24 Unknown Rx penicillin V potassium 500 mg 500 mg PO 4X/DAY #28 tabs 06/14/24 Unknown Rx tablet diphenhydramine HCl 25 mg tablet 25 mg PO TID PRN itching 5 days 06/29/24 Unknown Rx (Allergy Relief (diphenhydramine)) #15 tabs prednisone 20 mg tablet 40 mg (2 x 20 mg) PO DAILY 5 days 06/29/24 Unknown Rx #10 tabs Allergy/AdvReac Type Severity Reaction Status Date / Time Penicillins (PCN) Allergy Rash Verified 06/29/24 10:40 Family History Mother Hypertension Diabetes Father Kidney disease Surgical History H/O: Social History household members: children Smoking Status: Current every day smoker tobacco type: cigarettes alcohol intake: never substance use type: does not use caffeine: No EXAM Physical Exam Const Vital Signs: 06/29/24 10:39 Temperature 98.9 F Temperature Source Temporal Pulse Rate 100 Respiratory Rate 18 Blood Pressure 100/67 Blood Pressure Mean 78 Pulse Ox 100 Oxygen Delivery Method Room Air MDM MDM MDM Narrative Medical decision making narrative: 34-year-old female presents for evaluation of pruritic rash. Endorses some mild bilateral lip swelling however this is not observed on my exam. Rash is hard to observe given patient's skin color. No signs of anaphylaxis. Differential diagnosis includes but is not limited to urticaria from allergic reaction versus drug rash. Vitals are stable. Plan will be for discharge home with 5 days of Benadryl as needed for pruritus as well as 5 days of prednisone. Patient has prednisone on her med list however she states that she has not taken it since September. She is not diabetic. Return precautions explained. Follow-up with PCP. Impression: 1. Pruritic rash, suspect urticaria 2. Possible allergic reaction to penicillin Discharge Plan Triage Chief Complaint: Rash ED Provider: Bryan Barron Dx/Rx/DC Orders Clinical Impression: Allergic reaction caused by a drug Instructions: ED Hives (Adult) Prescriptions: New prednisone 20 mg tablet 40 mg PO DAILY 5 Days Qty: 10 0RF diphenhydramine HCl [Allergy Relief(diphenhydramin)] 25 mg tablet 25 mg PO TID PRN (Reason: itching) 5 Days Qty: 15 0RF No Action prednisone 20 mg tablet 40 mg PO DAILY Qty: 10 0RF albuterol sulfate [ProAir HFA] 90 mcg/actuation HFA aerosol inhaler 1 inh inhalation Q6H PRN (Reason: shortness of breath or wheezing) Qty: 8.5 0RF naproxen [Naprosyn] 500 mg tablet 500 mg PO BID PRN (Reason: pain) Qty: 20 0RF oseltamivir [Tamiflu] 75 mg capsule 75 mg PO BID 5 Days Qty: 10 0RF penicillin V potassium 500 mg tablet 500 mg PO 4X/DAY Qty: 28 0RF naproxen [Naprosyn] 500 mg tablet 500 mg PO BID PRN (Reason: pain) Qty: 20 0RF Primary Care Provider: Ray Carnes Referrals: Ray Carnes MD [Primary Care Provider] - 3-5 Days Print Language: Luxembourger Disposition Disposition: Home, Self Care Discharge Date/Time: 06/29/24 11:21
[2024-06-29 11:05] VITALS: BP 100/67; PULSE 100; RESP 18; TEMP 37.2; O2SAT 100
== END 2024-06-29 11:21 | disposition home or self-care (01) ==
LOC: ED 11:17
PROVIDERS: Emergency Provider Surgery; PCP Family Medicine; Visit Provider Surgery
DX: R21 Rash and other nonspecific skin eruption (principal); F17.210 Nicotine dependence, cigarettes, uncomplicated
CPT/HCPCS: 99282

== ENCOUNTER 2025-03-03 12:02 | Emergency (ER) | payer MEDICAID, SELFPAY ==
[2025-03-03 12:03] VITALS: BP 121/81; PULSE 82; RESP 16; TEMP 36.6; O2SAT 99; BMI 24.3
--- NOTE | 2025-03-03 12:25 | ED.VIS.DENTA ---
HPI <CHIQUITA Forman - Last Filed: 03/03/25 13:42> History of Present Illness Chief Complaint: Dental Narrative Narrative: Patient presenting today with left upper and lower dental pain that has been ongoing intermittently for over 6 months. She has not yet followed up with a dentist. She reports that she has an appointment for July but admits that she needs to call around to find a closer appointment. Her pain worsened over the last 2 days, prompting her to come in to be seen. She denies any fevers or chills. She is eating and drinking without difficulty. PFSH <CHIQUITA Forman - Last Filed: 03/03/25 13:42> PFSH Medical History Acute on chronic anemia Sterilization History of prior with IUGR Heart disease Anemia Premature ventricular contraction Syncope SHERITA (obstructive sleep apnea) Bipolar disorder Schizophrenia Depression Anxiety Former smoker CPAP (continuous positive airway pressure) dependence Sleep apnea Asthma Migraines Home Medications ?Medication ?Instructions ?Recorded ?Last Taken ?Type clindamycin HCl 300 mg capsule 300 mg PO Q6H #28 CAPSULES 03/03/25 Unknown Rx (Cleocin HCl) topiramate 25 mg tablet 25 mg PO 03/03/25 Unknown History Allergy/AdvReac Type Severity Reaction Status Date / Time Penicillins (PCN) Allergy Rash Verified 03/03/25 12:11 Family History Mother Hypertension Diabetes Father Kidney disease Surgical History H/O: Social History household members: children Smoking Status: Current every day smoker tobacco type: cigarettes alcohol intake: never substance use type: does not use caffeine: No ROS <CHIQUITA Forman - Last Filed: 03/03/25 13:42> ROS ED Constitutional Constitutional ED: Denies chills or fever(s) ENT ENT ED: Reports dental pain Cardiovascular Cardiovascular: Denies chest pain Respiratory/Chest Respiratory/Chest: Denies dyspnea Gastrointestinal Gastrointestinal: Denies abdominal pain, nausea or vomiting EXAM <CHIQUITA Forman - Last Filed: 03/03/25 13:42> Physical Exam Const Vital Signs: 03/03/25 12:03 03/03/25 12:57 Temperature 97.9 F 97.9 F Temperature Source Temporal Pulse Rate 82 71 Respiratory Rate 16 15 Blood Pressure 121/81 H 118/75 Blood Pressure Mean 94 89 Pulse Ox 99 99 Oxygen Delivery Method Room Air Positive well nourished, well developed and no apparent distress General Appearance ED: well developed HEENT Reports normocephalic and head/scalp atraumatic HEENT Narrative: Pain to the left maxillary second molar, no dental abscess, she also has pain to the left mandibular molars, there are obvious cavities, no again no dental abscess. No sublingual swelling, no facial cellulitis, no signs of Ludewig's angina. Mouth ED: Yes moist mucous membranes normal Eyes PERRL and EOMs intact bilaterally Neck full ROM and supple Chest Wall inspection of chest normal Resp normal respiratory effort and clear to auscultation bilaterally Cardio regular rate and regular rhythm Back/Spine normal ROM and normal to inspection Extremity normal to inspection and full ROM Neuro moves all extremities, no focal motor deficits and no sensory deficits noted Sensorium / Orientation: awake and alert Psych mental status grossly normal and thought process normal Skin no rashes or lesions noted and no wounds <Dr. Zhang Costa DO - Last Filed: 03/03/25 22:08> Physical Exam Const Vital Signs: 03/03/25 12:03 03/03/25 12:57 Temperature 97.9 F 97.9 F Temperature Source Temporal Pulse Rate 82 71 Respiratory Rate 16 15 Blood Pressure 121/81 H 118/75 Blood Pressure Mean 94 89 Pulse Ox 99 99 Oxygen Delivery Method Room Air [facility] <CHIQUITA Forman - Last Filed: 03/03/25 13:42> [facility] Narrative Medical decision making narrative: Patient presenting today with dental pain to her left maxillary second molar and mandibular left lower molars that she has had off and on for at least 6 months. Over the past several days her pain has been worse, prompting her to come in. She does not have a dentist appointment until July, I will give her a dental referral sheet to try to get in somewhere sooner. On exam she does have dental caries but no dental abscess, no facial swelling or facial cellulitis, no sublingual or submental swelling, no signs of Gopal's angina. She is otherwise nontoxic-appearing. I will place her on a course of clindamycin, she will be given ibuprofen here for pain. She can alternate Tylenol and ibuprofen as needed at home for pain. She will be discharged home in stable condition. <Dr. Zhang Costa, DO - Last Filed: 03/03/25 22:08> [facility] Narrative Medical decision making narrative: Patient presenting today with dental pain to her left maxillary second molar and mandibular left lower molars that she has had off and on for at least 6 months. Over the past several days her pain has been worse, prompting her to come in. She does not have a dentist appointment until July, I will give her a dental referral sheet to try to get in somewhere sooner. On exam she does have dental caries but no dental abscess, no facial swelling or facial cellulitis, no sublingual or submental swelling, no signs of Gopal's angina. She is otherwise nontoxic-appearing. I will place her on a course of clindamycin, she will be given ibuprofen here for pain. She can alternate Tylenol and ibuprofen as needed at home for pain. She will be discharged home in stable condition. Attending note: I have personally performed a face to face assessment of the patient and have reviewed the REGINO note. I personally made/approved the management plan and take responsibility for the patient management. I performed a substantive portion of the visit including all aspects of the following. My barnett findings include: Left-sided upper and lower dental pain ongoing for 6 months. Hot and cold sensitivities. Has seen a dentist did put a feeling on the lower however still had continued pain. Try to find a new dentist. Penicillin allergy. Exam no focal fluctuant abscess there was dental fillings to lower left molars. No sublingual edema. Nontoxic. She started on clindamycin unable to take large ibuprofen. She will use [id number] smaller pills as needed along with Tylenol. Dental list given for follow-up referrals. Discharge Plan Triage Chief Complaint: Dental ED Midlevel Provider: Belén Owusu ED Provider: Zhang Costa Dx/Rx/DC Orders Clinical Impression: Pain, dental, Dental caries Instructions: ED Dental Pain, ED Dental Cavity Prescriptions: New clindamycin HCl [Cleocin HCl] 300 mg capsule 300 mg PO Q6H Qty: 28 0RF No Action topiramate 25 mg tablet 25 mg PO Primary Care Provider: Ray Carnes Referrals: Ray Carnes MD [Primary Care Provider] - Activity Restrictions/Additional Instructions: You can take Tylenol and ibuprofen as needed for your pain. Please follow-up with a dentist. Return for any other concerns or worsening symptoms. Print Language: Vietnamese Disposition Disposition: Home, Self Care Discharge Date/Time: 03/03/25 12:58
[2025-03-03] MEDS: Ibuprofen 600 MG Tablet PO (12:31)
[2025-03-03] MEDS: Clindamycin HCl 150 MG Capsule 450 MG PO (12:31)
[2025-03-03 12:57] VITALS: BP 118/75; PULSE 71; RESP 15; TEMP 36.6; O2SAT 99
== END 2025-03-03 12:58 | disposition home or self-care (01) ==
PROVIDERS: Emergency Provider Emergency Medicine; PCP Family Medicine; Visit Provider Emergency Medicine
DX: K02.9 Dental caries, unspecified (principal); F17.210 Nicotine dependence, cigarettes, uncomplicated; J45.909 Unspecified asthma, uncomplicated; Z79.899 Other long term (current) drug therapy; K08.89 Other specified disorders of teeth and supporting structures
CPT/HCPCS: 99283

== ENCOUNTER 2025-09-26 15:25 | Emergency (ER) | payer SELFPAY ==
[2025-09-26 15:25] VITALS: BP 128/71; PULSE 71; RESP 16; TEMP 36.7; O2SAT 100; BMI 24.1
--- NOTE | 2025-09-26 16:40 | EDS_ITS ---
HPI History of Present Illness Chief Complaint: Chest Other Informant: patient Onset/Context/Timing Onset: Yesterday Context: Gradual Onset Timing: Continuous Quality: Poking Location: Substernal and left chest Worsened by: Bending over Relieved by: Hot shower Narrative Narrative: Patient presents with chest pain that began last night. Patient states it came on gradually. Patient states it is over the substernal area and radiates into her left chest. Patient describes it as poking in her left chest. Patient states it is worse when she bends over. Patient states it got better when she took a hot shower. Patient admits to a cough but denies any sputum production. Patient denies any shortness of breath. Patient admits to some nausea but denies any vomiting. Patient denies any fevers or chills. Patient states her pain radiates into her back. PFSH PFSH Medical History Acute on chronic anemia Sterilization History of prior with IUGR Heart disease Anemia Premature ventricular contraction Syncope SHERITA (obstructive sleep apnea) Bipolar disorder Schizophrenia Depression Anxiety Former smoker CPAP (continuous positive airway pressure) dependence Sleep apnea Asthma Migraines Home Medications ?Medication ?Instructions ?Recorded ?Last Taken ?Type clindamycin HCl 300 mg capsule 300 mg PO Q6H #28 CAPSU LES 03/03/25 Unknown Rx (Cleocin HCl) topiramate 25 mg tablet 25 mg PO 03/03/25 Unknown Hi story Allergy/AdvReac Type Severity Reaction Status Date / Time Penicillins (PCN) Allergy Rash Verified 09/26/25 15:30 Family History Mother Hypertension Diabetes Father Kidney disease Surgical History H/O: Social History household members: children housing: house Smoking Status: Current every day smoker tobacco type: cigarettes alcohol intake: never substance use type: does not use caffeine: No ROS ROS ED Constitutional Constitutional ED: Denies chills or fever(s) Eyes Eyes: Denies blurry vision or change in vision ENT ENT ED: Denies rhinorrhea or sore throat Cardiovascular Cardiovascular: Reports chest pain; Denies palpitations Respiratory/Chest Respiratory/Chest: Reports cough; Denies dyspnea Gastrointestinal Gastrointestinal: Reports nausea; Denies vomiting Genitourinary Genitourinary ED: Denies dysuria or hematuria Musculoskeletal Musculoskeletal: Reports back pain; Denies neck pain Integumentary Denies abscess or rash Neurologic Neurologic: Denies headache(s) or weakness Allergic/Immunologic Allergic/Immunologic ED: Denies mouth swelling or urticaria EXAM Physical Exam Const Vital Signs: 09/26/25 15:25 09/26/25 17:07 Temperature 98.1 F Temperature Source Oral Pulse Rate 71 78 Respiratory Rate 16 14 Respiratory Pattern Normal Blood Pressure 128/71 H Blood Pressure Mean 90 Pulse Ox 100 Oxygen Delivery Method Room Air Positive well nourished and well developed General Appearance ED: well developed and NAD HEENT Reports moist mucous membranes Neck supple and no JVD Chest Wall palpation of chest normal Resp normal respiratory effort and clear to auscultation bilaterally Cardio regular rate and regular rhythm GI non-tender and non-distended Palpation: soft Extremity normal to inspection General Extremety ED: Negative for edema or tenderness General Extremity: Negative for edema Neuro oriented x3, CN's II-XII intact bilaterally and no sensory deficits noted Sensorium / Orientation: alert Motor Exam: strength 5/5 throughout Psych mental status grossly normal MDM MDM MDM Narrative Medical decision making narrative: Differential diagnose includes pneumonia, bronchitis, viral illness, musculoskeletal pain, gastroesophageal reflux disease, and anxiety. Chest x-ray will be obtained to assess for pneumonia or bronchitis. EKG will be obtained to assess for cardiac dysrhythmia and cardiac ischemia, COVID-19, influenza, and RSV PCR will be obtained to assess for viral illness. Lab Data Attestation: I reviewed the patient's lab results. Lab results narrative: COVID-19 PCR was reviewed and was negative. Influenza PCR was reviewed and was negative for influenza A and influenza B. RSV PCR was reviewed and was negative. Radiography Chest X-Ray - ED: 2 View, Read by ED Physician, Read by Radiologist and No Acute Disease Diagnostic Testing: Clinical Impression(s) from Imaging Studies Chest X-Ray 09/26/25 16:50 IMPRESSION: No acute cardiopulmonary disease. Reading Location: [id number] PA and lateral chest x-ray was obtained. There are 2 views. On my independent interpretation, lung bernard are clear. There is normal cardiac silhouette. Bony thorax is normal. There is no acute process noted. Radiologist also interpreted the x-ray and agrees. EKG Initial EKG: Attestation: I personally reviewed and interpreted this EKG as follows: Interpretation: Sinus Rhythm (With occasional PVCs 71) Comments: EKG was obtained. On my independent interpretation, it showed a normal sinus rhythm with occasional PVCs with a rate of 71. NC interval, QRS interval, and QTc intervals were all normal. [place] was normal. There are no acute ST or T wave changes. Prior EKG tracings: available for review Prior: Unchanged (09/06/2023) Treatment and Re-Evaluation :: Patient was given a DuoNeb aerosol here. Patient was advised of her findings. Patient was instructed to drink plenty of fluids. Patient was instructed to take Tylenol or ibuprofen as needed for any aches or fevers. Patient was instructed to follow-up with her primary care physician in 5 to 7 days. Patient understood and was agreeable with the plan. All questions were answered. Discharge Plan Triage Chief Complaint: Chest Other ED Provider: Herb Verde Dx/Rx/DC Orders Clinical Impression: Chest pain, Premature ventricular contraction Instructions: ED Chest Pain, Uncertain Cause Prescriptions: No Action topiramate 25 mg tablet 25 mg PO clindamycin HCl [Cleocin HCl] 300 mg capsule 300 mg PO Q6H Qty: 28 0RF Primary Care Provider: Care Physician,No Primary Referrals: Garcia Suárez MD [Med Staff - Active Staff, Family Practice] - 5-7 Days Care Physician,No Primary [Primary Care Provider, Medical] Print Language: Beninese Disposition Disposition: Home, Self Care
--- NOTE | 2025-09-26 16:46 | EKG12_ITS ---
Test Reason : Blood Pressure : */* mmHG Vent. Rate : 71 BPM Atrial Rate : 71 BPM P-R Int : 150 ms QRS Dur : 74 ms QT Int : 406 ms P-R-T Axes : 67 50 45 degrees QTcB Int : 441 ms Sinus rhythm with frequent Premature ventricular complexes Otherwise normal ECG Confirmed by RUBI FAULKNER, MK ([id number]), social media editor MANOLO NOLASCO ([id number]) on 10/01/2025 6:21:55 AM Referred By: Confirmed By: MK VENEGAS MD
--- NOTE | 2025-09-26 16:50 | RAD_ITS ---
PROCEDURE: CHEST PA AND LATERAL 09/26/2025 REASON FOR EXAM: CHEST PAIN TECHNIQUE: Procedure Code: RADCXR Modality: DX Procedure: CHEST PA AND LATERAL COMPARISON: 11/18/2023 FINDINGS: Lungs/Pleura: Clear. No pneumothorax or pleural effusion. Heart/Mediastinum: Within normal limits. Bones/Soft tissues: No significant abnormality. RAD/Chest PA and Lateral IMPRESSION: No acute cardiopulmonary disease. Reading Location: [id number]
[2025-09-26 17:07] VITALS: PULSE 78; RESP 14
[2025-09-26 18:18] VITALS: BP 121/79; PULSE 84; RESP 16; TEMP 36.9; O2SAT 100
== END 2025-09-26 18:19 | disposition home or self-care (01) ==
PROVIDERS: Emergency Provider Emergency Medicine; Visit Provider Emergency Medicine
DX: R07.89 Other chest pain (principal); R05.1 Acute cough; I49.3 Ventricular premature depolarization; F17.210 Nicotine dependence, cigarettes, uncomplicated
CPT/HCPCS: 71046; 87631; 93005; 94640; 99282